=== PATIENT | male | born 1950 | race Caucasian/White ===

== ENCOUNTER 2016-09-18 17:15 | Inpatient (IN) ==
--- NOTE | 2016-09-18 17:38 | Emergency Department Note ---
Disposition Clinical Impression: Acute renal insufficiency, Hyperglycemia UTI (urinary tract infection) Qualifiers: Urinary tract infection type: site unspecified Hematuria presence: without hematuria Qualified Code(s): N39.0 - Urinary tract infection, site not specified Disposition: Admitted As Inpatient Condition: Fair Referrals: Lucy Jain CNP [Primary Care Provider] - Forms: ED Satisfaction Letter Time of Disposition: 20:05 Fall HPI - General Chief Complaint: ED Fall Stated Complaint: fall Time Seen by Provider: 09/18/16 17:24 Source: patient, family Limitations: other (Dementia) Nursing Notes Reviewed: Yes Vital Signs Reviewed: Yes - History of Present Illness HPI Narrative: 66-year-old male with history of recurrent small cell lung cancer presents for multiple falls and weakness. History is very limited due to patient's dementia and spouse being a vague historian. Patient has reportedly had 2 falls in the last 48 hours. One of which he struck his head and did not apparently lose consciousness. The other he fell onto his left side suffering an abrasion to his left elbow. He has had significant weakness over the last week or so and is unable to get around the house for the last few days. He has had an okay appetite and normal bowel movements and no change in urination. He does have a history of mild urinary retention which is unchanged from baseline. He is not currently receiving cancer therapy. His doctors trying to get him into immunotherapy. He has previously received radiation and chemotherapy for the lung cancer as well as prophylactic radiation of the brain. - Related Data Home Medications Medication Instructions Recorded Confirmed Albuterol Neb [AccuNeb] 0.63 mg IH Q6H 09/27/15 09/10/16 Albuterol Sulfate [Albuterol 2 puff IH Q4HR 09/27/15 09/10/16 Inhaler] Amlodipine Besylate 10 mg PO DAILY 09/27/15 09/10/16 Budesonide/Formoterol 160/4.5 2 puff IH BIDR 09/27/15 09/10/16 [Symbicort 160/4.5] Clopidogrel [Plavix] 75 mg PO DAILY 09/27/15 09/10/16 Metoprolol [Lopressor] 50 mg PO BID 09/27/15 09/10/16 Omeprazole [PriLOSEC] 20 mg PO DAILY 09/27/15 09/10/16 Simvastatin [Zocor] 10 mg PO QPM 09/27/15 09/10/16 Levothyroxine [Synthroid] 125 mcg PO 0630 01/31/16 09/10/16 Insulin ASPART [Novolog] 8 unit SQ BIDWM 02/05/16 09/10/16 Insulin NPH Hum/Reg Insulin Hm 16 unit SQ DAILY 02/05/16 09/10/16 [Novolin 70-30 100 Unit/ml Vial] Gabapentin [Neurontin] 300 mg PO HS 02/17/16 09/10/16 Previous Rx's Medication Instructions Recorded Chair, Shower [SHOWER CHAIR] 1 each .ROUTE AD #1 each 10/21/15 Commode - Three In One [THREE IN 1 each .ROUTE PRN #1 each 10/21/15 ONE COMMODE] Handicap Placard 1 each .ROUTE AD #1 each 10/21/15 Walker - Rollator [ROLLATOR] 1 each .ROUTE AD #1 each 10/21/15 Ondansetron [Zofran] 1 tab PO Q8HR PRN #90 tablet 03/04/16 Prochlorperazine Maleate 1 tab PO Q6HR PRN #90 tablet 03/04/16 [Compazine] Citalopram Hydrobromide [Celexa] 20 mg PO DAILY #90 tablet 04/28/16 Amitriptyline [Elavil] 25 mg PO HS #90 tablet 08/25/16 Docusate [Colace] 1 cap PO BID #60 capsule 08/25/16 HYDROcodone/Acet 7.5/325 mg [[place] 1 tab PO Q6H PRN #90 tablet 08/25/16 7.5-325 mg] Tamsulosin [Flomax] 0.4 mg PO DAILY #90 cap.er.24h 08/25/16 Loperamide [Imodium] 2 mg PO AD PRN #90 capsule 09/10/16 Oxycodone HCl [Oxaydo] 5 mg PO Q2H PRN #90 tablet.orl 09/10/16 Allergies Allergy/AdvReac Type Severity Reaction Status Date / Time No Known Allergies Allergy Verified 09/18/16 17:22 All systems ED: reviewed and negative except as stated. Fall PMH - Past Medical History Medical history: Reports: cancer, COPD, diabetes, hyperlipidemia, hypertension, thyroid disease, TIA Surgical history: Reports: other Psychiatric history: Reports: no psych history - Social History Smoking Status: Current every day smoker Alcohol use: Reports: occasionally Drug use: Reports: none Physical Exam - Head Head exam: atraumatic, normocephalic, abrasion to the vertex of the head. - Eye Eye exam: Present: normal appearance, PERRL, EOMI - ENT ENT exam: normal exam, normal oropharynx, mucous membranes moist - Neck Neck exam: Present: normal inspection, full ROM, trachea midline. Nontender with full painless range of motion. - Chest Chest inspection: Present: normal inspection, symmetric chest wall rise - Respiratory Respiratory exam: Clear to auscultation bilaterally without wheezes rales or rhonchi Cardiovascular Cardiovascular exam: Present: regular rate, normal rhythm, normal heart sounds - Abdominal Exam Abdominal exam: Present: soft, Non-Tender. Absent: tenderness, distention, guarding, rebound, rigidity - Extremities Exam Extremities exam: Present: Abrasion to the left elbow with normal painless range of motion and without discrete tenderness. No tenderness to the hips or knees bilaterally. Normal pulses in all extremities. - Back Exam Back exam: Present: normal inspection, full ROM. Absent: tenderness, CVA tenderness (R), CVA tenderness (L) - Neurological Exam Neurological exam: Present: alert, oriented [address], CN II-XII intact. Motor 5 out of 5 in all extremities. No gross sensory deficits. No drift. - Psychiatric Psychiatric exam: Present: normal affect, normal mood - Skin Skin exam: Present: warm, dry, intact, normal color - General Limitations: no limitations General appearance: alert Course - Reevaluation(s) Reevaluation #1: Imaging is negative. Labs are stable. Awaiting urinalysis. Patient is too weak to go home and has had multiple falls. He will need to be admitted for further evaluation and possible detention. Time: 19:23 Reevaluation #2: Labs showed significant hyperglycemia which the patient's states is chronic. She states that his blood sugar always runs very high and his glucometer has been reading "high" for the last week. Urinalysis showed a urinary tract infection. Patient was started on Rocephin and admitted to Dr. Franco for further management. He also received 1 L of normal saline as well as 10 units of subcutaneous insulin. Time: 20:04 Vital Signs Temperature 97.5 F L 09/18/16 17:18 Pulse Rate 55 09/18/16 17:18 Respiratory Rate 18 09/18/16 17:18 Blood Pressure 137/54 09/18/16 17:18 O2 Sat by Pulse Oximetry 93 09/18/16 17:18 Temperature 97.5 F L 09/18/16 17:18 Pulse Rate 74 09/18/16 19:45 Respiratory Rate 18 09/18/16 19:45 Blood Pressure 123/58 09/18/16 19:45 O2 Sat by Pulse Oximetry 94 09/18/16 19:45 Oxygen Delivery Oxygen Delivery Room Air Fall - Lab Data Result diagrams: 09/18/16 17:53 09/18/16 17:53 Lab Results 09/18/16 09/18/16 09/18/16 Range/Units 17:53 17:53 19:07 WBC 11.6 H (4.3-11.1) K/mcL RBC 3.03 L (4.19-5.50) M/mcL Hgb 9.3 L (12.9-16.9) g/dL Hct 27.4 L (37.5-50.1) % MCV 90.4 (83.0-100.0) fL MCH 30.7 (28.0-33.3) pg MCHC 33.9 (31.6-35.5) g/dL RDW 13.0 (11.5-14.5) % Plt Count 307 (140-400) K/mcL MPV 9.3 L (9.4-12.4) fL Immature Gran % 1.3 (0-4) % Seg Neutrophils % 81.9 % Lymphocytes % 7.5 % Monocytes % 8.7 % Eosinophils % 0.3 % Basophils % 0.3 % Neutrophils # 9.5 H (1.6-8.9) K/mcL Lymphocytes # 0.9 (0.6-4.6) K/mcL Monocytes # 1.0 (0.0-1.3) K/mcL Eosinophils # 0.0 (0.0-0.6) K/mcL Basophils # 0.0 (0.0-0.2) K/mcL Sodium 132 L (136-145) mEq/L Potassium 5.1 H (3.5-4.5) mEq/L Chloride 97 L (98-109) mEq/L Carbon Dioxide 21 (19-29) mEq/L BUN 43 H (8-26) mg/dL Creatinine 1.63 H (0.72-1.25) mg/dL Est GFR ( Amer) 52 L (> 60) Est GFR (Non-Af Amer) 43 L (> 60) BUN/Creatinine Ratio 26 (6-26) Glucose 462 H (70-99) mg/dL Calculated Osmolality 305 H (280-300) Calcium 10.3 (8.6-10.8) mg/dL Urine Color Yellow (Yellow) Urine Clarity Cloudy A (Clear) Urine pH 6.5 (5.0-8.0) pH Units Ur Specific [place] 1.017 (1.010-1.025) Urine Protein Trace (Neg-Trace) mg/dL Urine Glucose (UA) >=1000 H (Normal) mg/dL Urine Ketones 40 H (Negative) mg/dL Urine Blood Negative (Negative) Urine Nitrite Positive A (Negative) Urine Bilirubin Negative (Negative) Urine Urobilinogen Normal (Normal) mg/dL Ur Leukocyte Esterase Moderate H (Negative) Urine Microscopic RBC 3-5 H (0-3) per hpf Urine Microscopic WBC 15-30 H (0-3) per hpf Ur Squamous Epith Cells Moderate H (None-Few) per lpf Urine Bacteria Few (None-Few) per hpf Hyaline Casts None Seen (None-Few) per lpf Ur Culture Indicated? YES A (NO) - EKG Data EKG attestation: Yes I reviewed and interpreted this EKG. EKG results narrative: Normal sinus rhythm at 70 with normal axis and intervals. No ST elevation or depression. No T-wave inversions. No pathologic Q waves. No significant change when compared with 11/20/2015.
[2016-09-18 18:01] LABS: Basophils % 0.3 %; Eosinophils % 0.3 %; Hematocrit 27.4 % (37.5-50.1); Hemoglobin 9.3 g/dL (12.9-16.9); Immature Granulocytes % 1.3 % (0-4); Lymphocytes # 0.9 K/mcL (0.6-4.6); Lymphocytes % 7.5 %; Mean Corpuscular HGB Conc 33.9 g/dL (31.6-35.5); Mean Corpuscular Hemoglobin 30.7 pg (28.0-33.3); Mean Corpuscular Volume 90.4 fL (83.0-100.0); Mean Platelet Volume 9.3 fL (9.4-12.4); Monocytes % 8.7 %; Neutrophils # 9.5 K/mcL (1.6-8.9); Platelet Count 307 K/mcL (140-400); Red Blood Count 3.03 M/mcL (4.19-5.50); Segmented Neutrophils % 81.9 %
[2016-09-18 18:14] LABS: Calcium 10.3 mg/dL (8.6-10.8); Potassium 5.1 mEq/L (3.5-4.5)
[2016-09-18 19:22] LABS: Bilirubin,Urine Negative (Negative); Blood,Urine Negative (Negative); Clarity,Urine Cloudy (Clear); Color,Urine Yellow (Yellow); Glucose,Urine (UA) >=1000 mg/dL (Normal); Ketones,Urine 40 mg/dL (Negative); Leukocyte Esterase,Urine Moderate (Negative); Nitrite,Urine Positive (Negative); PH,Urine 6.5 pH Units (5.0-8.0); Protein,Urine Trace mg/dL (Neg-Trace); Specific Gravity,Urine 1.017 (1.010-1.025); Urobilinogen,Urine Normal (Normal)
--- NOTE | 2016-09-18 19:22 | Emergency Department Note ---
Disposition Clinical Impression: UTI (urinary tract infection), Acute renal insufficiency, Hyperglycemia Disposition: Admitted As Inpatient Condition: Fair Referrals: Lucy Jain CNP [Primary Care Provider] - Forms: ED Satisfaction Letter General Adult HPI - General Chief complaint: ED Fall Stated complaint: fall Time Seen by Provider: 09/18/16 17:24 Source: patient, family Limitations: no limitations - History of Present Illness Pain Scale: 8 - Related Data Home Medications Medication Instructions Recorded Confirmed Albuterol Neb [AccuNeb] 0.63 mg IH Q6H PRN 09/27/15 09/18/16 Albuterol Sulfate [Albuterol 2 puff IH Q4HR PRN 09/27/15 09/18/16 Inhaler] Amlodipine Besylate 10 mg PO DAILY 09/27/15 09/18/16 Budesonide/Formoterol 160/4.5 2 puff IH BIDR 09/27/15 09/18/16 [Symbicort 160/4.5] Clopidogrel [Plavix] 75 mg PO DAILY 09/27/15 09/18/16 Metoprolol [Lopressor] 50 mg PO BID 09/27/15 09/18/16 Omeprazole [PriLOSEC] 20 mg PO DAILY 09/27/15 09/18/16 Simvastatin [Zocor] 10 mg PO QPM 09/27/15 09/18/16 Levothyroxine [Synthroid] 125 mcg PO 0630 01/31/16 09/18/16 Insulin ASPART [Novolog] 0 unit SQ TIDWM 02/05/16 09/18/16 Gabapentin [Neurontin] 300 mg PO HS 02/17/16 09/18/16 Allopurinol [Zyloprim 100 MG] 100 mg PO DAILY 09/18/16 Docusate [Colace] 100 mg PO BID 09/18/16 09/18/16 Ferrous Sulfate 325 mg PO DAILY 09/18/16 Glucagon,Human Recombinant 1 mg IJ ONCE PRN 09/18/16 09/18/16 [Glucagon Emergency Kit] Insulin NPH, HUMAN [HumuLIN N] 0 unit SQ DAILY 09/18/16 09/18/16 Pramipexole Di-HCl [Pramipexole 0.5 mg PO HS 09/18/16 09/18/16 Dihydrochloride] Sennosides [Senna] 17.2 mg PO HS PRN 09/18/16 Previous Rx's Medication Instructions Recorded Ondansetron [Zofran] 1 tab PO Q8HR PRN #90 tablet 03/04/16 Prochlorperazine Maleate 1 tab PO Q6HR PRN #90 tablet 03/04/16 [Compazine] Amitriptyline [Elavil] 25 mg PO HS #90 tablet 08/25/16 HYDROcodone/Acet 7.5/325 mg [[place] 1 tab PO Q6H PRN #90 tablet 08/25/16 7.5-325 mg] Tamsulosin [Flomax] 0.4 mg PO DAILY #90 cap.er.24h 08/25/16 Loperamide [Imodium] 2 mg PO AD PRN #90 capsule 09/10/16 Oxycodone HCl [Oxaydo] 5 mg PO Q2H PRN #90 tablet.orl 09/10/16 Allergies Allergy/AdvReac Type Severity Reaction Status Date / Time No Known Allergies Allergy Verified 09/18/16 17:22 Past Medical History - Past Medical History Medical history: Reports: cancer, COPD, diabetes, hyperlipidemia, hypertension, thyroid disease, TIA Surgical history: Reports: other Psychiatric history: Reports: no psych history - Social History Smoking Status: Current every day smoker Smokeless Tobacco Status: No Alcohol use: Reports: occasionally Drug use: Reports: none Physical Exam - General Limitations: no limitations General appearance: alert Course - Reevaluation(s) Reevaluation #1: Social patient with the resident, Dr. Meyer. Patient presents after multiple falls at home. He actually found himself unable to get up today as well. At one point he was up with a walker when he fell. His could not get him up. Sounds like he is having significant weakness. He seems to landed on his left hip although clinically there is not a significant amount of tenderness over the hip itself. There is no pain on axial loading of the hip joint. The patient just seems overall weak. It sounds like the situation is not safe at home so he did not need to be admitted. The question is what is the cause of his weakness. Waiting for labs to help us understand that. We will eventually arranged for him to be admitted to the hospital. Time: 19:22 Vital Signs Temperature 97.5 F L 09/18/16 17:18 Pulse Rate 55 09/18/16 17:18 Respiratory Rate 18 09/18/16 17:18 Blood Pressure 137/54 09/18/16 17:18 O2 Sat by Pulse Oximetry 93 09/18/16 17:18 Temperature 97.5 F L 09/18/16 17:18 Pulse Rate 70 09/18/16 20:18 Respiratory Rate 20 09/18/16 20:18 Blood Pressure 118/63 09/18/16 20:18 O2 Sat by Pulse Oximetry 94 09/18/16 20:18 Oxygen Delivery Oxygen Delivery Room Air Medical Decision Making - Lab Data Result diagrams: 09/18/16 17:53 09/18/16 17:53 Lab Results 09/18/16 09/18/16 09/18/16 Range/Units 17:53 17:53 19:07 WBC 11.6 H (4.3-11.1) K/mcL RBC 3.03 L (4.19-5.50) M/mcL Hgb 9.3 L (12.9-16.9) g/dL Hct 27.4 L (37.5-50.1) % MCV 90.4 (83.0-100.0) fL MCH 30.7 (28.0-33.3) pg MCHC 33.9 (31.6-35.5) g/dL RDW 13.0 (11.5-14.5) % Plt Count 307 (140-400) K/mcL MPV 9.3 L (9.4-12.4) fL Immature Gran % 1.3 (0-4) % Seg Neutrophils % 81.9 % Lymphocytes % 7.5 % Monocytes % 8.7 % Eosinophils % 0.3 % Basophils % 0.3 % Neutrophils # 9.5 H (1.6-8.9) K/mcL Lymphocytes # 0.9 (0.6-4.6) K/mcL Monocytes # 1.0 (0.0-1.3) K/mcL Eosinophils # 0.0 (0.0-0.6) K/mcL Basophils # 0.0 (0.0-0.2) K/mcL Sodium 132 L (136-145) mEq/L Potassium 5.1 H (3.5-4.5) mEq/L Chloride 97 L (98-109) mEq/L Carbon Dioxide 21 (19-29) mEq/L BUN 43 H (8-26) mg/dL Creatinine 1.63 H (0.72-1.25) mg/dL Est GFR ( Amer) 52 L (> 60) Est GFR (Non-Af Amer) 43 L (> 60) BUN/Creatinine Ratio 26 (6-26) Glucose 462 H (70-99) mg/dL Calculated Osmolality 305 H (280-300) Calcium 10.3 (8.6-10.8) mg/dL Urine Color Yellow (Yellow) Urine Clarity Cloudy A (Clear) Urine pH 6.5 (5.0-8.0) pH Units Ur Specific [place] 1.017 (1.010-1.025) Urine Protein Trace (Neg-Trace) mg/dL Urine Glucose (UA) >=1000 H (Normal) mg/dL Urine Ketones 40 H (Negative) mg/dL Urine Blood Negative (Negative) Urine Nitrite Positive A (Negative) Urine Bilirubin Negative (Negative) Urine Urobilinogen Normal (Normal) mg/dL Ur Leukocyte Esterase Moderate H (Negative) Urine Microscopic RBC 3-5 H (0-3) per hpf Urine Microscopic WBC 15-30 H (0-3) per hpf Ur Squamous Epith Cells Moderate H (None-Few) per lpf Urine Bacteria Few (None-Few) per hpf Hyaline Casts None Seen (None-Few) per lpf Ur Culture Indicated? YES A (NO) Attestation Statement - Attestation Attestation: I , Dr. Hughes, examined this patient [id number] and my medical decision- making was reviewed with Dr. Meyer, Resident Physician. I agree with the documented findings, disposition and treatment plan as described except to the extent set forth below. Please see my progress notes for details.
[2016-09-18 19:24] LABS: Bacteria,Urine Few per hpf (None-Few); Hyaline Casts,Urine None Seen per lpf (None-Few); Squamous Epithelial Cell,Urine Moderate per lpf (None-Few); WBC,Urine 15-30 per hpf (0-3)
[2016-09-18] MEDS ORDERED: 0.9 % Sodium Chloride 1,000 ML IVC ONE (19:45)
[2016-09-18] MEDS ORDERED: Insulin Regular, Human 100 UNIT/ML SQ ONE (19:45)
[2016-09-18] MEDS ORDERED: Ondansetron 4 MG/2 ML VIAL IVP PRN (20:27)
[2016-09-18] MEDS ORDERED: Naloxone 0.4 MG/ML INJ IVP PRN (20:27)
[2016-09-18] MEDS ORDERED: *HR* Dextrose 50 % in Water (Syg) 50 ML SYRINGE IVP PRN (20:27)
[2016-09-18] MEDS ORDERED: *HR* Morphine 2 MG/ML SYRINGE IVP PRN (20:27)
[2016-09-18] MEDS ORDERED: Dextrose Gel 15 GM PO PRN ×2 (20:27)
[2016-09-18] MEDS ORDERED: Acetaminophen 325 MG TABLET PO PRN (20:27)
[2016-09-18] MEDS ORDERED: D5% in Water 1,000 ML IVC PRN (20:27)
--- NOTE | 2016-09-18 20:36 | Internal Med History&Physical ---
Date of Encounter: 09/18/16 Time of Encounter: 20:34 Assessment and Plan (1) UTI (urinary tract infection) Current visit: Yes Status: Acute acute metabolic encephalopathy radhaon [place], follow cultures Continue IV fluids Full precautions Omeprazole for GI prophylaxis and subcutaneous heparin for DVT prophylaxis. Patient will be admitted as inpatient, expected to stay more than 2 midnights. Wishes to be a full code. Time spent on this admission 40 minutes. High risk of falling Qualifiers: Urinary tract infection type: site unspecified Hematuria presence: without hematuria Qualified Code(s): N39.0 - Urinary tract infection, site not specified (2) Acute metabolic encephalopathy Current visit: Yes Status: Acute (3) Acute renal insufficiency Current visit: Yes Status: Acute Acute renal failure secondary to infection/dehydration versus possible obstruction Order straight catheter every shift, consider [place] catheter Continue the fluids and monitor creatinine, consider nephrology consult if not improving (4) HTN (hypertension) Current visit: No Status: Chronic Qualifiers: Hypertension type: essential hypertension Qualified Code(s): I10 - Essential (primary) hypertension (5) Hyponatremia Current visit: No Status: Chronic History of SIADH Monitor sodium and consider fluid restriction if force (6) Hypothyroidism Current visit: No Status: Chronic Continue levothyroxine Qualifiers: Hypothyroidism type: unspecified Qualified Code(s): E03.9 - Hypothyroidism , unspecified (7) SIADH (syndrome of inappropriate ADH production) Current visit: No Status: Chronic (8) Small cell lung cancer Current visit: No Status: Chronic Qualifiers: Laterality: unspecified laterality Qualified Code(s): C34.90 - Malignant neoplasm of unspecified part of unspecified bronchus or lung (9) Diabetes Current visit: Yes Status: Acute Continue insulin sliding scale Qualifiers: Diabetes mellitus type: type 2 Diabetes mellitus complication status: without complication Diabetes mellitus intermodal customer service insulin use: with intermodal customer service use Qualified Code(s): E11.9 - Type 2 diabetes mellitus without complications ; Z79.4 - terminal gauger (current) use of insulin Internal Medicine - H&P: HPI Chief complaint: Weakness Admitted From: Emergency Dept History of present illness: Mr. Swanson is a 66 year old male with a past medical history of lung cancer/ small cell carcinoma stage IV status post chemotherapy and radiation, at least 2 insulin-dependent, hypertension, dementia, who was brought by his as he has been falling lately. The patient has fallen twice in the past 48 hours, she hit his head but did not lose consciousness. The CT scan of the head did not show any intracranial hemorrhage or fracture. Patient has been feeling weaker and more confused for the past 2 days. His UA shows positive nitrates 30 white blood cells in few bacteria. White blood cell count is 11.6 hemoglobin 9.6) 2 his baseline, sodium 132, he has history of SIADH, potassium is 5.1 and his creatinine has increased from 1.01 up to 1.63. His glucose has been very elevated and he has not been able to move around. His glucose today was 462. Also, he supposed to self catheterize at home for the past 2 days she has been so weak he has not been able to do it. 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, SIADH, GERD, tobacco use, DKA in the past, depression, BPH, neuropathy), COPD (Not oxygen dependent), diabetes (Insulin-dependent), hyperlipidemia, hypertension, thyroid disease (Hypothyroidism), TIA, other (CAD status post stents) Psychiatric history: no psych history - Past Surgical History Surgical History: other (Chest port on the right chest, tonsillectomy, adenoidectomy, left foot cyst surgery, cardiac catheterization) - Social History Smoking Status: Current every day smoker Packs per day: One pack per day Smokeless Tobacco Status: No Alcohol use: occasionally Drug use: none - Additional Family History Additional family history: Brother with CABG, father with lung cancer/ mesothelioma, sister with hypertension Internal Medicine - H&P: Meds Albuterol Neb [AccuNeb] 0.63 mg IH Q6H PRN 09/27/15 [History] Albuterol Sulfate [Albuterol Inhaler] 2 puff IH Q4HR PRN 09/27/15 [History] Amlodipine Besylate 10 mg PO DAILY 09/27/15 [History] Budesonide/Formoterol 160/4.5 [Symbicort 160/4.5] 2 puff IH BIDR 09/27/15 [ History] Clopidogrel [Plavix] 75 mg PO DAILY 09/27/15 [History] Metoprolol [Lopressor] 50 mg PO BID 09/27/15 [History] Omeprazole [PriLOSEC] 20 mg PO DAILY 09/27/15 [History] Simvastatin [Zocor] 10 mg PO QPM 09/27/15 [History] Levothyroxine [Synthroid] 125 mcg PO 0630 01/31/16 [History] Insulin ASPART [Novolog] 0 unit SQ TIDWM 02/05/16 [History] Gabapentin [Neurontin] 300 mg PO HS 02/17/16 [History] Ondansetron [Zofran] 1 tab PO Q8HR PRN #90 tablet 03/04/16 [Rx] Prochlorperazine Maleate [Compazine] 1 tab PO Q6HR PRN #90 tablet 03/04/16 [Rx] Amitriptyline [Elavil] 25 mg PO HS #90 tablet 08/25/16 [Rx] HYDROcodone/Acet 7.5/325 mg [[place] 7.5-325 mg] 1 tab PO Q6H PRN #90 tablet 08/25 [Rx] Tamsulosin [Flomax] 0.4 mg PO DAILY #90 cap.er.24h 08/25/16 [Rx] Loperamide [Imodium] 2 mg PO AD PRN #90 capsule 09/10/16 [Rx] Oxycodone HCl [Oxaydo] 5 mg PO Q2H PRN #90 tablet.orl 09/10/16 [Rx] Allopurinol [Zyloprim 100 MG] 100 mg PO DAILY 09/18/16 [History] Docusate [Colace] 100 mg PO BID 09/18/16 [History] Ferrous Sulfate 325 mg PO DAILY 09/18/16 [History] Glucagon,Human Recombinant [Glucagon Emergency Kit] 1 mg IJ ONCE PRN 09/18/16 [ History] Insulin NPH, HUMAN [HumuLIN N] 0 unit SQ DAILY 09/18/16 [History] Pramipexole Di-HCl [Pramipexole Dihydrochloride] 0.5 mg PO HS 09/18/16 [History] Sennosides [Senna] 17.2 mg PO HS PRN 09/18/16 [History] Allergies No Known Allergies Allergy (Verified 09/18/16 17:22) All Systems PM: A 10-system review of systems was performed and is negative for pertinent findings except as documented above in the HPI. Review of systems: She is very weak, denies any chest pain, shortness of breath. Other systems out of the 10 reviewed werw negative Chest x-ray shows decrease in the size of the left mid lung mass and no acute pulmonary disease - Constitutional Vitals: Temp Pulse Resp BP Pulse Ox 97.5 F L 70 20 118/63 94 09/18/16 17:18 09/18/16 20:18 09/18/16 20:18 09/18/16 20:18 09/18/16 20:18 General appearance: Present: A&O X 3 (Confused at times, very poor historian), loss of weight - Head Head exam: Present: atraumatic, normocephalic - Eye Eye exam: Present: PERRL, conjuntiva pink, sclera anicteric Pupils: Present: PERRL - Neck Neck exam general surgery: Present: supple, trachea midline. Absent: lymphadenopathy - Respiratory Respiratory exam: Present: decreased breath sounds (Diminished breath sounds bilaterally, right upper chest port in place, no infection), CTAB. Absent: accessory muscle use, rales, rhonchi, wheezes - Cardiovascular Cardiovascular exam: Present: RRR, +S1, +S2. Absent: diastolic murmur, gallop, rubs, systolic murmur - GI/Abdominal GI/Abdominal exam: Present: normal bowel sounds, soft, no peritoneal signs. Absent: distended, tenderness - Extremities Exam Extremities exam: Present: warm, radial pulses palpable and symetrical. Absent : calf tenderness, cyanotic, pedal edema - Neurological Exam Neurological exam: Present: CN II-XII intact, oriented X3, no focal deficits. Absent: pronater drift, facial droop, speech deficit - Skin Skin exam: Present: dry, intact Internal Med - H&P Results - Labs CBC & Chem 7: 09/18/16 17:53 09/18/16 17:53 Labs: Short CBC 09/18/16 Range/Units 17:53 WBC 11.6 H (4.3-11.1) K/mcL Hgb 9.3 L (12.9-16.9) g/dL Hct 27.4 L (37.5-50.1) % Plt Count 307 (140-400) K/mcL Neutrophils # 9.5 H (1.6-8.9) K/mcL BMP 09/18/16 17:53 Sodium 132 L Potassium 5.1 H Chloride 97 L Carbon Dioxide 21 BUN 43 H Creatinine 1.63 H Glucose 462 H Calcium 10.3 Urine 09/18/16 Range/Units 19:07 Urine Color Yellow (Yellow) Urine Clarity Cloudy A (Clear) Urine pH 6.5 (5.0-8.0) pH Units Ur Specific [place] 1.017 (1.010-1.025) Urine Protein Trace (Neg-Trace) mg/dL Urine Glucose (UA) >=1000 H (Normal) mg/dL - Impressions ITS Impressions Head CT 09/18/16 17:32 IMPRESSION: No acute intracranial hemorrhage or mass effect. D/ / Jayce Morales MD / Jayce Morales MD Interpreting Provider: Jayce Morales MD Chest X-Ray 09/18/16 17:44 IMPRESSION: 1. No acute cardiopulmonary abnormality. 2. Decreased conspicuity of the patient's known left mid lung mass. D/ / Devaughn Mondragon MD / Devaughn Mondragon MD Interpreting Provider: Devaughn Mondragon MD Hip X-Ray 09/18/16 18:18 IMPRESSION: No acute fracture or subluxation. D/ / Savage Payne MD / Savage Payne MD Interpreting Provider: Savage Payne MD
[2016-09-18] MEDS ORDERED: Insulin LISPRO 300 UNITS/3 ML VIAL SQ SCH ×2 (21:00→22:45)
[2016-09-18] MEDS: Insulin LISPRO 300 UNITS/3 ML VIAL SQ SCH (22:39)
[2016-09-18] MEDS: 0.9 % Sodium Chloride 1,000 ML IVC SCH (23:42)
[2016-09-18] MEDS: *HR* Heparin 5,000 UNIT/ML VIAL SQ SCH (23:42)
[2016-09-18] MEDS: Nicotine 21 MG PATCH.TD24 TD SCH (23:42)
[2016-09-18] MEDS: Gabapentin 300 MG CAPSULE PO SCH (23:43)
[2016-09-18] MEDS: PRAMIPEXOLE DI HCL PO SCH (23:43)
[2016-09-18] MEDS: Insulin DETEMIR 100 UNIT/ML X5UNITS SQ SCH (23:43)
[2016-09-19 04:30] LABS: Hemoglobin 8.3 g/dL (12.9-16.9); Mean Corpuscular HGB Conc 34.6 g/dL (31.6-35.5); Mean Corpuscular Hemoglobin 31.2 pg (28.0-33.3); Mean Corpuscular Volume 90.2 fL (83.0-100.0); Mean Platelet Volume 9.7 fL (9.4-12.4); Platelet Count 278 K/mcL (140-400); Red Blood Count 2.66 M/mcL (4.19-5.50); Red Cell Distribution Width 12.9 % (11.5-14.5)
[2016-09-19 04:49] LABS: BUN/Creatinine Ratio 28 (6-26); Calcium 9.6 mg/dL (8.6-10.8); Carbon Dioxide 24 mEq/L (19-29); Chloride 103 mEq/L (98-109); Glucose 87 mg/dL (70-99); Osmolality,Calculated 290 (280-300); Sodium 137 mEq/L (136-145); eGFR For African Americans > 60 (> 60); eGFR For Non-African Americans > 60 (> 60)
[2016-09-19 04:51] LABS: Blood Urea Nitrogen 32 mg/dL (8-26); Potassium 3.6 mEq/L (3.5-4.5)
[2016-09-19] MEDS: Insulin LISPRO 300 UNITS/3 ML VIAL SQ SCH ×3 (08:00→16:46)
[2016-09-19] MEDS: amLODIPine 5 MG TABLET PO SCH (08:04)
[2016-09-19] MEDS: Nicotine 21 MG PATCH.TD24 TD SCH (08:05)
[2016-09-19] MEDS: *HR* Heparin 5,000 UNIT/ML VIAL SQ SCH ×2 (08:05→17:05)
[2016-09-19] MEDS ORDERED: Insulin LISPRO 300 UNITS/3 ML VIAL SQ SCH (08:35)
[2016-09-19] MEDS ORDERED: Famotidine 20 MG TABLET PO SCH (09:00)
--- NOTE | 2016-09-19 12:14 | Internal Med Progress Note ---
Date of Encounter: 09/19/16 Time of Encounter: 09:30 - Assessment and plan (1) UTI (urinary tract infection) Current Visit: Yes Status: Acute Assessment and plan: Culture pending. Continue ceftriaxone. Patient does not appear to have had a recent urinary tract infection at least not here at [facility]. Continue self cath as needed- bladder scan and possible caraballo placement if patient still too weak to cath himself as he was at home. Acute kidney injury resolved. Qualifiers: Urinary tract infection type: site unspecified Hematuria presence: without hematuria Qualified Code(s): N39.0 - Urinary tract infection, site not specified (2) Acute metabolic encephalopathy Current Visit: Yes Status: Acute (3) Acute renal insufficiency Current Visit: Yes Status: Resolved (4) Diabetes Current Visit: Yes Status: Chronic Assessment and plan: Appears relatively well controlled at home however A1c was from 7 months ago and was 6.4%, will obtain repeat morning labs. Continue sliding scale while admitted. Of note, patient was markedly hyperglycemic over 500 upon admission and he became hypoglycemic overnight. His sliding scale before meals and his nighttime doses of insulin has been decreased, we will monitor closely. Current glucose 114. Qualifiers: Diabetes mellitus type: type 2 Diabetes mellitus complication status: without complication Diabetes mellitus buttermaker insulin use: with buttermaker use Qualified Code(s): E11.9 - Type 2 diabetes mellitus without complications ; Z79.4 - bed bug exterminator (current) use of insulin (5) COPD (chronic obstructive pulmonary disease) Current Visit: No Status: Chronic Assessment and plan: Patient denies shortness of breath above his norm at this time, we will continue to trend (6) HTN (hypertension) Current Visit: No Status: Chronic Assessment and plan: Controlled. At home, patient is on amlodipine 10 mg daily, metoprolol 50 mg twice a day and both of these have been continued, will continue to trend Qualifiers: Hypertension type: essential hypertension Qualified Code(s): I10 - Essential (primary) hypertension (7) Hyponatremia Current Visit: No Status: Resolved (8) Hypothyroidism Current Visit: No Status: Chronic Assessment and plan: TSH checked last month was low, T4 normal, follow-up outpatient Qualifiers: Hypothyroidism type: unspecified Qualified Code(s): E03.9 - Hypothyroidism , unspecified (9) SIADH (syndrome of inappropriate ADH production) Current Visit: No Status: Chronic (10) Small cell lung cancer Current Visit: No Status: Chronic Qualifiers: Laterality: unspecified laterality Qualified Code(s): C34.90 - Malignant neoplasm of unspecified part of unspecified bronchus or lung (11) Falls Current Visit: Yes Status: Acute Assessment and plan: We will bring OT and PT on board. - Subjective Interval history: Patient seen and examined. On examination, patient sitting upright in bed asleep. He awakens he to light touch states he would like to sleep then quickly falls back to sleep. His abdomen is soft but diffusely tender. He denies concerns at this time. - Constitutional Vitals: Temp Pulse Resp BP Pulse Ox 98.1 F 71 20 147/62 96 09/19/16 10:54 09/19/16 10:54 09/19/16 10:54 09/19/16 10:54 09/19/16 10:54 General appearance: Present: cachectic, A&O X 3 (Confused at times, very poor historian), no acute distress, loss of weight - Head Head exam: Present: atraumatic, normocephalic - Eye Eye exam: Present: PERRL, conjuntiva pink, sclera anicteric Pupils: Present: PERRL - Neck Neck exam general surgery: Present: trachea midline. Absent: lymphadenopathy - Respiratory Respiratory exam: Present: decreased breath sounds. Absent: accessory muscle use, rales, respiratory distress, rhonchi, wheezes - Cardiovascular Cardiovascular exam: Present: RRR, +S1, +S2. Absent: diastolic murmur, gallop, rubs, systolic murmur - GI/Abdominal GI/Abdominal exam: Present: normal bowel sounds, soft, tenderness, no peritoneal signs. Absent: distended - Extremities Exam Extremities exam: Present: warm, radial pulses palpable and symetrical. Absent : calf tenderness, cyanotic, pedal edema - Neurological Exam Neurological exam: Present: alert, altered (groggy/sleepy), CN II-XII intact, oriented X3, no focal deficits. Absent: pronater drift, facial droop, speech deficit - Skin Skin exam: Present: dry, intact, pallor, warm Internal Medicine: Result - Labs CBC & Chem 7: 09/19/16 03:30 09/19/16 03:30 Labs: Short CBC 09/19/16 Range/Units 03:30 WBC 11.8 H (4.3-11.1) K/mcL Hgb 8.3 L (12.9-16.9) g/dL Hct 24.0 L (37.5-50.1) % Plt Count 278 (140-400) K/mcL [facility] 09/19/16 03:30 Sodium 137 Potassium 3.6 D Chloride 103 Carbon Dioxide 24 BUN 32 H D Creatinine 1.15 Glucose 87 Calcium 9.6 Consult Discharge Plan - Plan Referrals: Lucy Jain, [employer] [Primary Care Provider] -
[2016-09-19] MEDS: 0.9 % Sodium Chloride 1,000 ML IVC SCH (13:14)
[2016-09-19] MEDS ORDERED: Sennosides 8.6 MG TABLET PO PRN (16:57)
[2016-09-19] MEDS ORDERED: Ondansetron 4 MG/2 ML VIAL IVP PRN (17:02)
[2016-09-19] MEDS: *HR* HYDROcodone/Acet 7.5/325 mg TABLET PO PRN (17:13)
[2016-09-19] MEDS: *HR* OxyCODONE Immed Rel 5 MG TABLET PO PRN (18:43)
[2016-09-19] MEDS: Budesonide/Formoterol 160/4.5 MDI IH SCH (19:52)
[2016-09-19] MEDS: Gabapentin 300 MG CAPSULE PO SCH (19:58)
[2016-09-19] MEDS: Insulin DETEMIR 100 UNIT/ML X5UNITS SQ SCH (20:14)
[2016-09-19] MEDS: PRAMIPEXOLE DI HCL PO SCH (20:20)
[2016-09-20] MEDS: *HR* Heparin 5,000 UNIT/ML VIAL SQ SCH ×4 (00:54→23:26)
[2016-09-20] MEDS: 0.9 % Sodium Chloride 1,000 ML IVC SCH (03:03)
[2016-09-20 04:49] LABS: Basophils % 0.3 %; Eosinophils # 0.3 K/mcL (0.0-0.6); Eosinophils % 3.7 %; Hematocrit 22.9 % (37.5-50.1); Immature Granulocytes % 1.2 % (0-4); Lymphocytes # 1.5 K/mcL (0.6-4.6); Lymphocytes % 17.5 %; Mean Corpuscular HGB Conc 34.9 g/dL (31.6-35.5); Mean Corpuscular Hemoglobin 31.7 pg (28.0-33.3); Mean Corpuscular Volume 90.9 fL (83.0-100.0); Mean Platelet Volume 9.7 fL (9.4-12.4); Monocytes % 11.5 %; Neutrophils # 5.7 K/mcL (1.6-8.9); Platelet Count 270 K/mcL (140-400); Red Blood Count 2.52 M/mcL (4.19-5.50); Red Cell Distribution Width 12.9 % (11.5-14.5); Segmented Neutrophils % 65.8 %
[2016-09-20] MEDS: Nicotine 21 MG PATCH.TD24 TD SCH (07:51)
[2016-09-20] MEDS: amLODIPine 5 MG TABLET PO SCH (07:51)
[2016-09-20] MEDS: Insulin LISPRO 300 UNITS/3 ML VIAL SQ SCH ×3 (07:52→17:05)
[2016-09-20] MEDS: Budesonide/Formoterol 160/4.5 MDI IH SCH ×2 (08:14→20:24)
--- NOTE | 2016-09-20 10:22 | Internal Med Progress Note ---
Date of Encounter: 09/20/16 Time of Encounter: 09:30 - Assessment and plan (1) Falls Current Visit: Yes Status: Acute Assessment and plan: Awaiting OT and PT recommendations. We will observe overnight, discussed with the patient is options after he is seen by OT and PT. He states that he will likely refused to go to correction and he states he will likely refuse home health services stating that he and his do not care for people coming into their house. He is also refusing to use a walker or a cane. (2) UTI (urinary tract infection) Current Visit: Yes Status: Ruled-out Assessment and plan: Ruled out, urine culture negative. Mild leukocytosis resolved, no indication for antibiotics. Patient is unable to catheter himself at this time, we will leave [place] in place. Acute kidney injury resolved. Qualifiers: Urinary tract infection type: site unspecified Hematuria presence: without hematuria Qualified Code(s): N39.0 - Urinary tract infection, site not specified (3) Acute metabolic encephalopathy Current Visit: Yes Status: Resolved Assessment and plan: Patient alert and oriented 3. He denies pain or shortness of breath above his norm. Awaiting OT and PT consultations for tomorrow. Patient stated he would refuse to go to inpatient rehabilitation unit also refused home health services , will speak further with the patient once recommendations are rendered. (4) Acute renal insufficiency Current Visit: Yes Status: Resolved (5) Diabetes Current Visit: Yes Status: Chronic Assessment and plan: Appears relatively well controlled at home however A1c was from 7 months ago and was 6.4%, will obtain repeat morning labs. Continue sliding scale while admitted. Of note, patient was markedly hyperglycemic over 500 upon admission and he became hypoglycemic overnight. His sliding scale before meals and his nighttime doses of insulin has been decreased yesterday and his glucoses have remained stable however they decrease overnight, we will decrease his basal and nighttime dosages. Qualifiers: Diabetes mellitus type: type 2 Diabetes mellitus complication status: without complication Diabetes mellitus ferry terminal agent insulin use: with fci use Qualified Code(s): E11.9 - Type 2 diabetes mellitus without complications ; Z79.4 - rodent exterminator (current) use of insulin (6) COPD (chronic obstructive pulmonary disease) Current Visit: No Status: Chronic Assessment and plan: Patient denies shortness of breath above his norm at this time, we will continue to trend (7) HTN (hypertension) Current Visit: No Status: Chronic Assessment and plan: Controlled. At home, patient is on amlodipine 10 mg daily, metoprolol 50 mg twice a day and both of these have been continued, will continue to trend Qualifiers: Hypertension type: essential hypertension Qualified Code(s): I10 - Essential (primary) hypertension (8) Hyponatremia Current Visit: No Status: Resolved (9) Hypothyroidism Current Visit: No Status: Chronic Assessment and plan: TSH checked last month was low, T4 normal, follow-up outpatient Qualifiers: Hypothyroidism type: unspecified Qualified Code(s): E03.9 - Hypothyroidism , unspecified (10) SIADH (syndrome of inappropriate ADH production) Current Visit: No Status: Chronic (11) Small cell lung cancer Current Visit: No Status: Chronic Qualifiers: Laterality: unspecified laterality Qualified Code(s): C34.90 - Malignant neoplasm of unspecified part of unspecified bronchus or lung - Subjective Interval history: Patient seen and examined. On examination, patient sitting upright in bed watching television. Patient currently denies pain and states he is eating well. He denies any nausea or vomiting. - Constitutional Vitals: Temp Pulse Resp BP Pulse Ox 98.3 F 75 16 146/70 95 09/20/16 06:55 09/20/16 06:55 09/20/16 08:14 09/20/16 06:55 09/20/16 08:14 General appearance: Present: cachectic, A&O X 3, pleasant, no acute distress, loss of weight, answers questions appropriately - Head Head exam: Present: atraumatic, normocephalic - Eye Eye exam: Present: PERRL, conjuntiva pink, sclera anicteric Pupils: Present: PERRL - Neck Neck exam general surgery: Present: supple, trachea midline. Absent: lymphadenopathy - Respiratory Respiratory exam: Present: decreased breath sounds. Absent: accessory muscle use, rales, respiratory distress, rhonchi, wheezes - Cardiovascular Cardiovascular exam: Present: RRR, +S1, +S2. Absent: diastolic murmur, gallop, rubs, systolic murmur - GI/Abdominal GI/Abdominal exam: Present: normal bowel sounds, soft, no peritoneal signs. Absent: distended, tenderness - Extremities Exam Extremities exam: Present: warm, radial pulses palpable and symetrical. Absent : calf tenderness, cyanotic, pedal edema - Neurological Exam Neurological exam: Present: alert, CN II-XII intact, oriented X3, no focal deficits, strengths equal and symetr throughout. Absent: pronater drift, facial droop, speech deficit - Skin Skin exam: Present: dry, intact, pallor, warm Internal Medicine: Result - Labs CBC & Chem 7: 09/20/16 03:36 09/19/16 03:30 Labs: Short CBC 09/20/16 Range/Units 03:36 WBC 8.7 (4.3-11.1) K/mcL Hgb 8.0 L (12.9-16.9) g/dL Hct 22.9 L (37.5-50.1) % Plt Count 270 (140-400) K/mcL Neutrophils # 5.7 (1.6-8.9) K/mcL Consult Discharge Plan - Plan Referrals: Lucy Jain, [employer] CONTAINER INSPECTOR [Primary Care Provider] -
[2016-09-20] MEDS ORDERED: Insulin LISPRO 300 UNITS/3 ML VIAL SQ SCH (10:26)
[2016-09-20] MEDS: *HR* OxyCODONE Immed Rel 5 MG TABLET PO PRN ×2 (17:03→20:46)
--- NOTE | 2016-09-20 20:05 | Electrocardiograph Report ---
[place] [id number] Test Date: 2016-09-18 Pat Name: Nic Swanson Department: 105 Room: 3B22 Gender: Buccaro: [facility] : 1950 Requested By: Candi Estrada Order Number: [id number] Reading MD: Sky Saravia MD Measurements Intervals [place] Rate: 70 P: 78 GA: 156 QRS: 71 QRSD: 93 T: 77 QT: 386 QTc: 407 Interpretive Statements SINUS RHYTHM Electronically Signed On 09-20-2016 20:03:35 EDT by Sky Saravia MD
[2016-09-20] MEDS: Gabapentin 300 MG CAPSULE PO SCH (20:46)
[2016-09-20] MEDS: PRAMIPEXOLE DI HCL PO SCH (20:49)
[2016-09-20] MEDS ORDERED: Insulin DETEMIR 100 UNIT/ML X5UNITS SQ SCH (21:00)
[2016-09-21 04:09] LABS: Basophils % 0.4 %; Eosinophils # 0.4 K/mcL (0.0-0.6); Hematocrit 24.5 % (37.5-50.1); Hemoglobin 8.4 g/dL (12.9-16.9); Immature Granulocytes % 1.5 % (0-4); Lymphocytes # 1.6 K/mcL (0.6-4.6); Lymphocytes % 21.3 %; Mean Corpuscular HGB Conc 34.3 g/dL (31.6-35.5); Mean Corpuscular Hemoglobin 31.1 pg (28.0-33.3); Mean Corpuscular Volume 90.7 fL (83.0-100.0); Mean Platelet Volume 9.8 fL (9.4-12.4); Monocytes # 0.8 K/mcL (0.0-1.3); Monocytes % 11.3 %; Neutrophils # 4.5 K/mcL (1.6-8.9); Platelet Count 303 K/mcL (140-400); Red Cell Distribution Width 13.1 % (11.5-14.5); Segmented Neutrophils % 60.5 %
[2016-09-21 04:16] LABS: Hemoglobin A1C 7.5 %
[2016-09-21 04:18] LABS: BUN/Creatinine Ratio 13 (6-26); Calcium 8.9 mg/dL (8.6-10.8); Carbon Dioxide 26 mEq/L (19-29); Chloride 102 mEq/L (98-109); Glucose 127 mg/dL (70-99); Osmolality,Calculated 281 (280-300); Potassium 3.5 mEq/L (3.5-4.5); Sodium 135 mEq/L (136-145); eGFR For African Americans > 60 (> 60); eGFR For Non-African Americans > 60 (> 60)
[2016-09-21 04:19] LABS: Blood Urea Nitrogen 11 mg/dL (8-26)
[2016-09-21] MEDS: Budesonide/Formoterol 160/4.5 MDI IH SCH (08:15)
[2016-09-21] MEDS: *HR* Heparin 5,000 UNIT/ML VIAL SQ SCH (08:17)
[2016-09-21] MEDS: amLODIPine 5 MG TABLET PO SCH (08:17)
[2016-09-21] MEDS: Nicotine 21 MG PATCH.TD24 TD SCH (08:17)
[2016-09-21] MEDS: 0.9 % Sodium Chloride 1,000 ML IVC SCH (08:18)
[2016-09-21] MEDS: *HR* HYDROcodone/Acet 7.5/325 mg TABLET PO PRN (08:25)
[2016-09-21] MEDS: Insulin LISPRO 300 UNITS/3 ML VIAL SQ SCH ×2 (08:26→12:12)
--- NOTE | 2016-09-21 13:49 | Discharge Summary ---
Date of Encounter: 09/21/16 Time of Encounter: 10:30 - Discharge Diagnosis (1) Falls Priority: Primary Status: Acute Comments: Home health was recommended the patient refused. He states that he and his do not allow for people to come into their trailer (2) UTI (urinary tract infection) Priority: Primary Status: Ruled-out Comments: Ruled out, urine culture negative. Mild leukocytosis resolved, no indication for antibiotics. Patient to continue to cath himself as usual. Acute kidney injury resolved. Qualifiers: Urinary tract infection type: site unspecified Hematuria presence: without hematuria Qualified Code(s): N39.0 - Urinary tract infection, site not specified (3) Acute metabolic encephalopathy Priority: Primary Status: Resolved (4) Acute renal insufficiency Priority: Primary Status: Resolved (5) Diabetes Priority: Secondary Status: Chronic Comments: Relatively well controlled on with an A1c of 7.5%. Follow-up outpatient. Of note, patient was markedly hyperglycemic over 500 upon admission and he became hypoglycemic overnight on the first night of his admission. His sliding scale before meals and his nighttime doses of insulin was decreased but again on the second night of his admission, his glucoses again dropped and his basal and nighttime dosages were again decreased. Qualifiers: Diabetes mellitus type: type 2 Diabetes mellitus complication status: without complication Diabetes mellitus half-way insulin use: with manager terminal use Qualified Code(s): E11.9 - Type 2 diabetes mellitus without complications ; Z79.4 - long-term (current) use of insulin (6) COPD (chronic obstructive pulmonary disease) Priority: Secondary Status: Chronic Comments: No acute exacerbation. Patient denied shortness of breath above his norm throughout this admission. (7) HTN (hypertension) Priority: Secondary Status: Chronic Comments: Controlled. At home, patient is on amlodipine 10 mg daily, metoprolol 50 mg twice a day and both of these have been continued Qualifiers: Hypertension type: essential hypertension Qualified Code(s): I10 - Essential (primary) hypertension (8) Hyponatremia Priority: Primary Status: Resolved (9) Hypothyroidism Priority: Secondary Status: Chronic Comments: TSH checked last month was low, T4 normal, follow-up outpatient Qualifiers: Hypothyroidism type: unspecified Qualified Code(s): E03.9 - Hypothyroidism , unspecified (10) SIADH (syndrome of inappropriate ADH production) Priority: Secondary Status: Chronic (11) Small cell lung cancer Priority: Secondary Status: Chronic Qualifiers: Laterality: unspecified laterality Qualified Code(s): C34.90 - Malignant neoplasm of unspecified part of unspecified bronchus or lung (12) Protein-calorie malnutrition, moderate Priority: Primary Status: Acute Comments: Ensure added to his regimen. - Discharge Medications Prescriptions: Lactose-Reduced Food [Ensure High Protein] 1 bottle PO TID #90 can Miscellaneous Medical Supply [Attachment Set] 1 each MC PRN PRN #1 miscell PRN Reason: weakness Home Medications: Albuterol Neb [AccuNeb] 0.63 mg IH Q6H PRN 09/27/15 [History] Albuterol Sulfate [Albuterol Inhaler] 2 puff IH Q4HR PRN 09/27/15 [History] Amlodipine Besylate 10 mg PO DAILY 09/27/15 [History] Budesonide/Formoterol 160/4.5 [Symbicort 160/4.5] 2 puff IH BIDR 09/27/15 [ History] Clopidogrel [Plavix] 75 mg PO DAILY 09/27/15 [History] Metoprolol [Lopressor] 50 mg PO BID 09/27/15 [History] Omeprazole [PriLOSEC] 20 mg PO DAILY 09/27/15 [History] Simvastatin [Zocor] 10 mg PO QPM 09/27/15 [History] Levothyroxine [Synthroid] 125 mcg PO 0630 01/31/16 [History] Insulin ASPART [Novolog] 0 unit SQ TIDWM 02/05/16 [History] Gabapentin [Neurontin] 300 mg PO HS 02/17/16 [History] Ondansetron [Zofran] 1 tab PO Q8HR PRN #90 tablet 03/04/16 [Rx] Prochlorperazine Maleate [Compazine] 1 tab PO Q6HR PRN #90 tablet 03/04/16 [Rx] Amitriptyline [Elavil] 25 mg PO HS #90 tablet 08/25/16 [Rx] HYDROcodone/Acet 7.5/325 mg [[place] 7.5-325 mg] 1 tab PO Q6H PRN #90 tablet 08/25 [Rx] Tamsulosin [Flomax] 0.4 mg PO DAILY #90 cap.er.24h 08/25/16 [Rx] Loperamide [Imodium] 2 mg PO AD PRN #90 capsule 09/10/16 [Rx] Oxycodone HCl [Oxaydo] 5 mg PO Q2H PRN #90 tablet.orl 09/10/16 [Rx] Allopurinol [Zyloprim 100 MG] 100 mg PO DAILY 09/18/16 [History] Docusate [Colace] 100 mg PO BID 09/18/16 [History] Ferrous Sulfate 325 mg PO DAILY 09/18/16 [History] Glucagon,Human Recombinant [Glucagon Emergency Kit] 1 mg IJ ONCE PRN 09/18/16 [ History] Insulin NPH, HUMAN [HumuLIN N] 0 unit SQ DAILY 09/18/16 [History] Pramipexole Di-HCl [Pramipexole Dihydrochloride] 0.5 mg PO HS 09/18/16 [History] Sennosides [Senna] 17.2 mg PO HS PRN 09/18/16 [History] Lactose-Reduced Food [Ensure High Protein] 1 bottle PO TID #90 can 09/21/16 [Rx] Miscellaneous Medical Supply [Attachment Set] 1 each MC PRN PRN #1 miscell 09/21 [Rx] Allergies/Adverse Reactions: Allergies No Known Allergies Allergy (Verified 09/18/16 17:22) Procedures/tests Complete & Pending: Procedures Performed prior 72 hours Category Date Time Status ECG 12 lead ECG [ECG] Routine Y 09/18/16 17:35 Completed Date of admission: 09/18/16 21:56 Primary care physician: Lucy Jain CNP Consults: 09/19/16 12:26 Consult to Occupational Therapy [CONS] Routine Comment: Evaluate, develop and implement POC Consult to Physical Therapy [CONS] Routine Comment: Evaluate, develop and implement POC Consult to Forensic Specialist [CONS] Routine Reason for SW Consult: may need placed. falls at home. weak. stage 4 cancer Discharging clinician: Candi Estrada Anticipated date of discharge: 09/21/16 (refusing ) - Patient Status Disposition: Home, Self-Care Condition: Fair Functional capacity at discharge: uses cane/walker Overall status at discharge: patient is progressing back to baseline - Discharge Instructions Follow Up With: Lucy Jain CNP [Primary Care Provider] - Additional Instructions: Follow-up with primary care provider within one to 2 weeks - Diet and Activity Activity: ambulate only with your walker, increase activity as tolerated Diet: diabetic diet (With Ensure 3 times a day with meals) Hospital course: Mr. Swanson is a 66 year old male with past medical history of lung cancer, small cell carcinoma stage IV status post chemotherapy and radiation, diabetes, hypertension, dementia, SIADH, GERD, tobacco abuse, COPD, hypothyroidism. Patient presented to the emergency department with his chief complaint of weakness and increased falls. Patient had fallen twice in the past 48 hours prior to presentation and hit his head but did not lose consciousness. Workup in the emergency department consistent with a urinary tract infection. Head CT negative. Chest x-ray negative for acute processes. Patient was admitted to the hospitalist service for further evaluation and management. He was treated with ceftriaxone. Mild leukocytosis had resolved and his urine culture came back negative so antibiotics were not indicated. He also had acute kidney injury that also resolved. He was alert and oriented 3 throughout this admission. OT and PT recommended home health however patient and his refused. They were advised of the risks versus benefits choosing not to accept help but they continued to decline. Patient stating he has a Rollator home and was requesting a wheelchair so that his could help push him around, prescription written for a wheelchair prior to discharge. He was evaluated by nutrition who surmised he has moderate, non-severe protein calorie malnutrition and he was sent home with a one-month supply of Ensure high-protein. He ate well during this admission. He denied pain and states that his pain was controlled for the most part. Plain films of his hip negative for acute processes. His anemia remained stable. Likely cause of his falls and dehydration secondary to decreased by mouth intake. He was discharged home in stable condition with close outpatient follow-up recommended. ITS Impressions Head CT 09/18/16 17:32 IMPRESSION: No acute intracranial hemorrhage or mass effect. D/ / Jayce Morales MD / Jayce Morales MD Interpreting Provider: Jayce Morales MD Chest X-Ray 09/18/16 17:44 IMPRESSION: 1. No acute cardiopulmonary abnormality. 2. Decreased conspicuity of the patient's known left mid lung mass. D/ / Devaughn Mondragon MD / Devaughn Mondragon MD Interpreting Provider: Devaughn Mondragon MD Hip X-Ray 09/18/16 18:18 IMPRESSION: No acute fracture or subluxation. D/ / Savage Payne MD / Savage Payne MD Interpreting Provider: Savage Payne MD - Time Spent with Patient Total time spent providing and/or coordinating discharge services: - Constitutional Vitals: Temp Pulse Resp BP Pulse Ox 97.8 F 74 16 125/71 94 09/21/16 10:48 09/21/16 10:48 09/21/16 10:48 09/21/16 10:48 09/21/16 10:48 General appearance: Present: cachectic, A&O X 3, pleasant, no acute distress, loss of weight, answers questions appropriately - Head Head exam: Present: atraumatic, normocephalic - Eye Eye exam: Present: PERRL, conjuntiva pink, sclera anicteric Pupils: Present: PERRL - Neck Neck exam general surgery: Present: supple, trachea midline. Absent: lymphadenopathy - Respiratory Respiratory exam: Present: accessory muscle use, decreased breath sounds. Absent: rales, respiratory distress, rhonchi, wheezes - Cardiovascular Cardiovascular exam: Present: RRR, +S1, +S2. Absent: diastolic murmur, gallop, rubs, systolic murmur - GI/Abdominal GI/Abdominal exam: Present: normal bowel sounds, soft, no peritoneal signs. Absent: distended, tenderness - Extremities Exam Extremities exam: Present: warm, radial pulses palpable and symetrical. Absent : calf tenderness, cyanotic, pedal edema - Neurological Exam Neurological exam: Present: alert, CN II-XII intact, oriented X3, no focal deficits, strengths equal and symetr throughout. Absent: pronater drift, facial droop, speech deficit - Skin Skin exam: Present: dry, intact, pallor, warm
[2016-09-21 14:58] VITALS: BP 124/61
== END 2016-09-21 15:20 | disposition home or self-care (01) | DRG 604 ==
LOC: EMEROO 17:15 → 3BNU 17:15
PROVIDERS: ADMIT Internal Medicine; ATTEND Nurse Practitioner Family

== ENCOUNTER 2016-10-12 19:18 | Inpatient (IN) ==
--- NOTE | 2016-10-12 23:17 | Internal Med History&Physical ---
Date of Encounter: 10/12/16 Time of Encounter: 23:16 Assessment and Plan (1) Sepsis Current visit: Yes Status: Acute Pt has leukocytosis and heart rate more than 90. Possibly related to urinary tract infection. Uncertain if the patient had cultures and antibiotics at [facility]. I have requested for urine cultures and ceftriaxone. We may have to check the culture reports from [facility] as well. Lactate level is not elevated. Continue IV fluids Qualifiers: Qualified Code(s): A41.9 - Sepsis, unspecified organism (2) UTI (urinary tract infection) Current visit: Yes Status: Acute Uncertain if the patient had cultures and antibiotics at [facility]. I have requested for urine cultures and ceftriaxone. We may have to check the culture reports from [facility] as well. Qualifiers: Urinary tract infection type: site unspecified Hematuria presence: without hematuria Qualified Code(s): N39.0 - Urinary tract infection, site not specified (3) Diabetes Current visit: Yes Status: Chronic Continue home medications / sliding scale insulin Qualifiers: Diabetes mellitus type: type 2 Diabetes mellitus complication status: without complication Diabetes mellitus continuous churn buttermaker insulin use: with group home use Qualified Code(s): E11.9 - Type 2 diabetes mellitus without complications ; Z79.4 - truck terminal manager (current) use of insulin (4) Hypothyroidism Current visit: Yes Status: Chronic Continue Synthroid Qualifiers: Hypothyroidism type: unspecified Qualified Code(s): E03.9 - Hypothyroidism , unspecified (5) HTN (hypertension) Current visit: Yes Status: Chronic Monitor blood pressure. Qualifiers: Hypertension type: essential hypertension Qualified Code(s): I10 - Essential (primary) hypertension (6) Small cell lung cancer Current visit: Yes Status: Chronic Oncology consult Qualifiers: Laterality: unspecified laterality Qualified Code(s): C34.90 - Malignant neoplasm of unspecified part of unspecified bronchus or lung (7) DVT prophylaxis Current visit: Yes Status: Acute Heparin Internal Medicine - H&P: HPI Chief complaint: Fall from bed Admitted From: Emergency Dept Plans for Post Hospital Care: Home History of present illness: Mr. Swanson is a 66 year old male with past medical history of extensive stage small cell lung cancer and synchronous primary squamous cell lung cancer, DM ( insulin treated), hypertension, dementia, SIADH, GERD, COPD, Hypothyroidism, CAD s/p stents. He was taken to ER at [facility], after he fell off the bed earlier today fell face down. No loss of consciousness reported. He denies headache/blurry vision, weakness of the extremities, pain in the hips/ knees. He reports some pain in the right sided ribs but denies bruising. He denies shortness of breath, cough, expectoration, fever, chills, abdominal pain , dysuria, hematuria, bowel problems. He was evaluated in the ER and was noted to have UTI. Pt and his apparently requested for transfer to [facility], as his oncologist is based here and has care here. Reviewed labs / data: CT head reported atrophy and chronic microvascular ischemic change. No bleed or positive mass effect. No abnormal extra-axial fluid collection or calvarial fracture. Urinalysis showed nitrates and leukocyte esterase. Serum sodium is 136 potassium 4 BUN 17 creatinine 1.29 calcium 9.2, troponin less than 0.056, lactic acid 1.1, WBC 19.9, hemoglobin 10.1, hematocrit 30.7, platelets 430. Glucose on the lab was 26; bedside was 168. Past Med Surg Social Fam HX - Past Medical History Medical history: cancer, COPD, diabetes, hyperlipidemia, hypertension, thyroid disease, TIA, other Psychiatric history: no psych history - Past Surgical History Surgical History: other - Social History Smoking Status: Current every day smoker Smokeless Tobacco Status: No Alcohol use: occasionally Drug use: none - Family History Father Living Status: Hx Family Cardiac Disorders: Yes (DE) Hx Family Respiratory Disorders: Yes Internal Medicine - H&P: Meds Albuterol Neb [AccuNeb] 0.63 mg IH Q6H PRN 09/27/15 [History] Albuterol Sulfate [Albuterol Inhaler] 2 puff IH Q4HR PRN 09/27/15 [History] Amlodipine Besylate 10 mg PO DAILY 09/27/15 [History] Budesonide/Formoterol 160/4.5 [Symbicort 160/4.5] 2 puff IH BIDR 09/27/15 [ History] Clopidogrel [Plavix] 75 mg PO DAILY 09/27/15 [History] Metoprolol [Lopressor] 50 mg PO BID 09/27/15 [History] Omeprazole [PriLOSEC] 20 mg PO DAILY 09/27/15 [History] Simvastatin [Zocor] 10 mg PO QPM 09/27/15 [History] Levothyroxine [Synthroid] 125 mcg PO 0630 01/31/16 [History] Insulin ASPART [Novolog] 0 unit SQ TIDWM 02/05/16 [History] Gabapentin [Neurontin] 300 mg PO HS 02/17/16 [History] Amitriptyline [Elavil] 25 mg PO HS #90 tablet 08/25/16 [Rx] Tamsulosin [Flomax] 0.4 mg PO DAILY #90 cap.er.24h 08/25/16 [Rx] Loperamide [Imodium] 2 mg PO AD PRN #90 capsule 09/10/16 [Rx] Oxycodone HCl [Oxaydo] 5 mg PO Q2H PRN #90 tablet.orl 09/10/16 [Rx] Docusate [Colace] 100 mg PO BID 09/18/16 [History] Glucagon,Human Recombinant [Glucagon Emergency Kit] 1 mg IJ ONCE PRN 09/18/16 [ History] Insulin NPH, HUMAN [HumuLIN N] 0 unit SQ DAILY 09/18/16 [History] Pramipexole Di-HCl [Pramipexole Dihydrochloride] 0.5 mg PO HS 09/18/16 [History] Lactose-Reduced Food [Ensure High Protein] 1 bottle PO TID #90 can 09/21/16 [Rx] Miscellaneous Medical Supply [Attachment Set] 1 each MC PRN PRN #1 miscell 09/21 [Rx] Morphine Sulfate SR (12 HR) [MS Contin] 15 mg PO Q12HR #60 10/05/16 [Rx] Ipilimumab [Yervoy] 10/12/16 [History] Nivolumab 10/12/16 [History] Nivolumab [Opdivo] 10/12/16 [History] Allergies No Known Allergies Allergy (Verified 10/05/16 17:59) All Systems PM: A 10-system review of systems was performed and is negative for pertinent findings except as documented above in the HPI. - Constitutional Vitals: Temp Pulse Resp BP Pulse Ox 99.5 F 97 18 152/85 97 10/12/16 21:04 10/12/16 21:04 10/12/16 21:04 10/12/16 21:04 10/12/16 21:04 Exam: General: Not in acute distress at the time of my evaluation. Confused at times. Her denies new changes HEENT: Oral mucosa is dry. No conjunctival palor or scleral icterus Neck: No obvious neck swellings Lungs: Left basal crackles present Cardiac: Regular rate and rhythm. No significant murmurs Abdomen: Soft, non tender. Bowel sounds present Genitourinary: No caraballo catheter Neurological: Alert and Confused at times. No gross localizing deficits Psych: Not aggressive or agitated Extremities: no significant leg edema Skin: No generalized rash Internal Med - H&P Results - Labs CBC & Chem 7: 10/13/16 01:10 10/13/16 01:10
[2016-10-12] MEDS ORDERED: *HR* OxyCODONE Immed Rel 5 MG TABLET PO PRN (23:53)
[2016-10-12] MEDS ORDERED: Albuterol Neb 0.63 MG/3 ML VIAL IH PRN (23:53)
[2016-10-12] MEDS ORDERED: *HR* Dextrose 50 % in Water (Syg) 50 ML SYRINGE IVP PRN (23:57)
[2016-10-12] MEDS ORDERED: Dextrose Gel 15 GM PO PRN ×2 (23:57)
[2016-10-12] MEDS ORDERED: D5% in Water 1,000 ML IVC PRN (23:57)
[2016-10-13] MEDS: Insulin LISPRO 300 UNITS/3 ML VIAL SQ SCH ×5 (01:09→20:35)
[2016-10-13] MEDS: Gabapentin 300 MG CAPSULE PO SCH ×2 (01:10→20:37)
[2016-10-13 01:30] LABS: Basophils % 0.2 %; Eosinophils % 0.3 %; Hematocrit 28.6 % (37.5-50.1); Hemoglobin 9.7 g/dL (12.9-16.9); Immature Granulocytes % 1.1 % (0-4); Lymphocytes % 6.5 %; Mean Corpuscular HGB Conc 33.9 g/dL (31.6-35.5); Mean Corpuscular Hemoglobin 30.4 pg (28.0-33.3); Mean Corpuscular Volume 89.7 fL (83.0-100.0); Mean Platelet Volume 9.4 fL (9.4-12.4); Monocytes # 1.1 K/mcL (0.0-1.3); Monocytes % 7.1 %; Neutrophils # 12.9 K/mcL (1.6-8.9); Platelet Count 371 K/mcL (140-400); Red Blood Count 3.19 M/mcL (4.19-5.50); Red Cell Distribution Width 13.2 % (11.5-14.5); Segmented Neutrophils % 84.8 %
[2016-10-13 01:47] LABS: BUN/Creatinine Ratio 15 (6-26); Blood Urea Nitrogen 18 mg/dL (8-26); Calcium 9.3 mg/dL (8.6-10.8); Carbon Dioxide 21 mEq/L (19-29); Chloride 95 mEq/L (98-109); Glucose 399 mg/dL (70-99); Osmolality,Calculated 289 (280-300); Potassium 4.3 mEq/L (3.5-4.5); Sodium 130 mEq/L (136-145); eGFR For African Americans > 60 (> 60); eGFR For Non-African Americans 59 (> 60)
[2016-10-13] MEDS: Nicotine 21 MG PATCH.TD24 TD SCH ×2 (04:12→07:52)
[2016-10-13] MEDS: 0.9 % Sodium Chloride 1,000 ML IVC SCH (05:19)
[2016-10-13] MEDS: *HR* Morphine Sulfate SR (12 HR) 15 MG TABLET.ER PO SCH ×2 (05:27→17:15)
[2016-10-13] MEDS: Budesonide/Formoterol 160/4.5 MDI IH SCH ×2 (07:52→20:59)
[2016-10-13] MEDS: amLODIPine 5 MG TABLET PO SCH (08:04)
[2016-10-13] MEDS: Lactobacillus 1 EACH CAP.SPRINK PO SCH ×2 (08:04→20:36)
[2016-10-13] MEDS: *HR* Heparin 5,000 UNIT/ML VIAL SQ SCH ×2 (08:05→17:12)
[2016-10-13] MEDS: (Ensure High Protein] 1 BOTTLE) PO SCH ×2 (08:08→14:23)
--- NOTE | 2016-10-13 08:38 | Oncology Inp Consult Note ---
Date of Encounter: 10/13/16 Time of Encounter: 08:35 - Data of Consult Patient: known to practice within the last 3 years Consult date: 10/13/16 Requesting Physician: Jackson Gan Primary Care Provider: Lucy Jain CNP - Consult Narrative Reason for consult: Lung cancer, ongoing immunotherapy. History of present illness: Mr. Swanson is a 66 year old male patient of the cancer center who is established with me at the cancer [place] for ongoing management of his advanced lung cancer. He was last seen in the office 10/05/16 and I have summarized patient's heme/onc background below based on my most recent office report. Oncologic history: Initially presented with SVC syndrome and Chest CT 09/27/15 showed a 2.4 cm RUL nodule with several, additional spiculated nodules in the right upper lobe 4.3 cm left lower lobe mass. Anterior mediastinal lymph node 2.6 cm. 3 cm precarinal lymph node. 2.6 cm right hilar lymph node. Mediastinal lymphadenopathy is causing 90% SVC obstruction. PET/CT scan 10/01/15 confirmed associated hypermetabolic activity. Contrast CT of the head was negative for metastatic disease.Unable to have brain MRI d/t severe claustrophobia. He was initially evaluated at [facility] for his lung cancer but elected to transfer care to [facility] for proximity to his home. He was also diagnosed with paraneoplastic SIADH. 10/09/15,bronch/EBUSNA by Dr. Jean confirmed SCLC right hilar nodes positive for CK 7, TTF-1, synaptophysin. Ki-67 showed high proliferative index. He went on to complete 6 cycles of combination chemotherapy and restaging scan showed an enlargement left lower lobe mass incongruous with the rest of his disease which showed excellent treatment response. Biopsy left lung mass confirmed poorly differentiated squamous cell carcinoma indicating a synchronous, second primary lung cancer. Treated with SBRT. Biopsy left adrenal gland 09/02/16 was positive for small cell carcinoma based on positive TTF-1, synaptophysin, CK 7, Ki-67 70%. Now on treatment with combination immunotherapy. Treatment summary: 10/17-02/27/16: 6 cycles of cisplatin D1 and etoposide day 1-3 regimen on 10/17-. 04/20-05/05/16: PCI per Dr. Brito. 04/20-05/01/16: SBRT to left lower lobe. 09/28/16: Started Ipilimumab plus Nivolumab combination every 3 weeks 4. Most recent scans: CT head neck, chest 08/10/16 shows stable findings with no evidence of progressive malignancy. CT abdomen/pelvis 08/10/16 showed developing mass and left adrenal gland suspicious for adrenal metastatic disease. Stable cystic pancreatic nodule. Differentials include pseudocyst versus IPMN versus cystic neoplasm. Neurogenic bladder. Patient is currently hospitalized for sepsis due to UTI with uncontrolled diabetes after presenting with altered mental status and mechanical fall at home. Oncology is consulted re: patient's underlying lung cancer. Patient seen and examined at bedside. Chart reviewed for details of ongoing care by hospital team which is much appreciated. He still somewhat intermittently confused state the time of my seeing him but is able to answer question of follow commands intermittently. He has received 1 dose of combination immunotherapy which he appears to have tolerated relatively well with no unexpected side effects. Rest of past medical, surgical, family, social history detailed below and verified with patient today. Review of systems: 12 point review of systems performed with patient and positive findings noted in history of present illness. All other systems are negative: Physical exam: Vital Signs Temp 97.8 F 10/13/16 04:13 Pulse 96 10/13/16 04:13 Resp 18 10/13/16 04:13 BP 119/69 10/13/16 04:13 Pulse Ox 98 10/13/16 04:13 GENERAL: Alert and oriented, acutely ill appearing. Mental Status: Affect appropriate for circumstances HEENT: Sclerae anicteric. No mucositis or thrush. No other oral or pharyngeal lesions or erythema. Skin: No rashes or petechiae. No evidence of skin malignancy Lymph nodes: No cervical, supraclavicular, axillary, or inguinal adenopathy. Lungs: Clear to auscultation bilaterally. Clear to percussion bilaterally. Cardiovascular: Regular rate and rhythm. No gallops, murmurs, or rubs. Abdomen: Soft, nontender; No organomegaly or masses palpable. Extremities: No edema. No calf swelling or tenderness. No joint deformity. Neurologic: Alert, normal gait; no focal weakness or sensory abnormalities. Results: Laboratory Last Values WBC 15.2 K/mcL (4.3-11.1) H 10/13/16 01:10 RBC 3.19 M/mcL (4.19-5.50) L 10/13/16 01:10 Hgb 9.7 g/dL (12.9-16.9) L 10/13/16 01:10 Hct 28.6 % (37.5-50.1) L 10/13/16 01:10 MCV 89.7 fL (83.0-100.0) 10/13/16 01:10 MCH 30.4 pg (28.0-33.3) 10/13/16 01:10 MCHC 33.9 g/dL (31.6-35.5) 10/13/16 01:10 RDW 13.2 % (11.5-14.5) 10/13/16 01:10 Plt Count 371 K/mcL (140-400) 10/13/16 01:10 MPV 9.4 fL (9.4-12.4) 10/13/16 01:10 Immature Gran % 1.1 % (0-4) 10/13/16 01:10 Seg Neutrophils % 84.8 % 10/13/16 01:10 Lymphocytes % 6.5 % 10/13/16 01:10 Monocytes % 7.1 % 10/13/16 01:10 Eosinophils % 0.3 % 10/13/16 01:10 Basophils % 0.2 % 10/13/16 01:10 Neutrophils # 12.9 K/mcL (1.6-8.9) H 10/13/16 01:10 Lymphocytes # 1.0 K/mcL (0.6-4.6) 10/13/16 01:10 Monocytes # 1.1 K/mcL (0.0-1.3) 10/13/16 01:10 Eosinophils # 0.0 K/mcL (0.0-0.6) 10/13/16 01:10 Basophils # 0.0 K/mcL (0.0-0.2) 10/13/16 01:10 Sodium 130 mEq/L (136-145) L 10/13/16 01:10 Potassium 4.3 mEq/L (3.5-4.5) 10/13/16 01:10 Chloride 95 mEq/L (98-109) L 10/13/16 01:10 Carbon Dioxide 21 mEq/L (19-29) 10/13/16 01:10 BUN 18 mg/dL (8-26) 10/13/16 01:10 Creatinine 1.22 mg/dL (0.72-1.25) 10/13/16 01:10 Est GFR ( Amer) > 60 (> 60) 10/13/16 01:10 Est GFR (Non-Af Amer) 59 (> 60) L 10/13/16 01:10 BUN/Creatinine Ratio 15 (6-26) 10/13/16 01:10 Glucose 399 mg/dL (70-99) H 10/13/16 01:10 POC Glucose 406 (58-89) H* 10/13/16 00:31 Calculated Osmolality 289 (280-300) 10/13/16 01:10 Calcium 9.3 mg/dL (8.6-10.8) 10/13/16 01:10 Radiographic studies: I personally reviewed and interpreted patient's most recent imaging studies dated 10/13/16. I discussed the findings with the patient today. Hip X-Ray 10/13/16 10:05 IMPRESSION: Possible acute nondisplaced left greater trochanteric fracture. CT or MRI is suggested for further evaluation. Osteopenia. D/ / 10/13/2016 11:19:43 Avery Gonzalez MD / kana Interpreting Provider: Avery Gonzalez MD Impression/recommendations: Lung cancer: He has a history of both small and non-small cell (squamous histology) lung cancer with more recent metastatic small cell lung cancer to the adrenals. He is on a combination immunotherapy and escalated one cycle of treatment today. Currently hospitalized for acute delirium. Today on a pessary related to urinary tract infection and uncontrolled hyperglycemia. His recent imaging did not show any evidence of intracranial involvement with lung cancer. He is not manifesting any side effects of immunotherapy present such as diarrhea , adrenal insufficiency, pneumonitis, cerebritis but the symptoms to look out for during patient's hospital admission. If he starts to manifest any such symptoms, he will need aggressive support with immunosuppressive including steroids etc. We'll be on hand to start supportive measures if needed. Delirium: This is likely extended on the basis of metabolic etiology but consideration for contribution from recent immunotherapy would be reasonable if no improvement after I properly treating UTI and hyperglycemia. If mental status remained altered in spite of above, we'll consider brain imaging for further evaluation and a trial of steroids. This is not indicated at this time. Encounter for immunotherapy monitoring: He is not manifesting any clear-cut side effects of his recent immunotherapy but we'll monitor closely while he is in-house. We'll follow the patient along side you during this hospitalization but please do not hesitate to call regarding interval hematologic questions as they arise. Thank you for your excellent ongoing care for allowing us to see him while in- house. This report was created using voice recognition software and may contain errors. It was signed but not edited to expedite communication. Corrections will be made in a separate addendum as needed. Past Med Surg Social Fam HX - Past Medical History Medical history: cancer, COPD, diabetes, hyperlipidemia, hypertension, thyroid disease, TIA, other Psychiatric history: no psych history - Past Surgical History Surgical History: other - Social History Smoking Status: Current every day smoker Smokeless Tobacco Status: No Alcohol use: occasionally Drug use: none - Family History Father Living Status: Hx Family Cardiac Disorders: Yes (OK) Hx Family Respiratory Disorders: Yes Medications and Allergies Albuterol Neb [AccuNeb] 0.63 mg IH Q6H PRN 09/27/15 [History] Albuterol Sulfate [Albuterol Inhaler] 2 puff IH Q4HR PRN 09/27/15 [History] Amlodipine Besylate 10 mg PO DAILY 09/27/15 [History] Budesonide/Formoterol 160/4.5 [Symbicort 160/4.5] 2 puff IH BIDR 09/27/15 [ History] Clopidogrel [Plavix] 75 mg PO DAILY 09/27/15 [History] Metoprolol [Lopressor] 50 mg PO BID 09/27/15 [History] Omeprazole [PriLOSEC] 20 mg PO DAILY 09/27/15 [History] Simvastatin [Zocor] 10 mg PO QPM 09/27/15 [History] Levothyroxine [Synthroid] 125 mcg PO 0630 01/31/16 [History] Insulin ASPART [Novolog] 0 unit SQ TIDWM 02/05/16 [History] Gabapentin [Neurontin] 300 mg PO HS 02/17/16 [History] Amitriptyline [Elavil] 25 mg PO HS #90 tablet 08/25/16 [Rx] Tamsulosin [Flomax] 0.4 mg PO DAILY #90 cap.er.24h 08/25/16 [Rx] Loperamide [Imodium] 2 mg PO AD PRN #90 capsule 09/10/16 [Rx] Oxycodone HCl [Oxaydo] 5 mg PO Q2H PRN #90 tablet.orl 09/10/16 [Rx] Docusate [Colace] 100 mg PO BID 09/18/16 [History] Glucagon,Human Recombinant [Glucagon Emergency Kit] 1 mg IJ ONCE PRN 09/18/16 [ History] Insulin NPH, HUMAN [HumuLIN N] 0 unit SQ DAILY 09/18/16 [History] Pramipexole Di-HCl [Pramipexole Dihydrochloride] 0.5 mg PO HS 09/18/16 [History] Lactose-Reduced Food [Ensure High Protein] 1 bottle PO TID #90 can 09/21/16 [Rx] Miscellaneous Medical Supply [Attachment Set] 1 each PRN PRN #1 miscell 09/21 [Rx] Morphine Sulfate SR (12 HR) [MS Contin] 15 mg PO Q12HR #60 10/05/16 [Rx] Ipilimumab [Yervoy] 10/12/16 [History] Nivolumab 10/12/16 [History] Nivolumab [Opdivo] 10/12/16 [History] Allergies No Known Allergies Allergy (Verified 10/05/16 17:59) Oncology - Exam - Constitutional Vitals: Temp Pulse Resp BP Pulse Ox 97.8 F 96 18 119/69 98 10/13/16 04:13 10/13/16 04:13 10/13/16 04:13 10/13/16 04:13 10/13/16 04:13 Oncology - Results - Labs Labs: Short CBC 10/13/16 Range/Units 01:10 WBC 15.2 H (4.3-11.1) K/mcL Hgb 9.7 L (12.9-16.9) g/dL Hct 28.6 L (37.5-50.1) % Plt Count 371 (140-400) K/mcL Neutrophils # 12.9 H (1.6-8.9) K/mcL BMP 10/13/16 01:10 Sodium 130 L Potassium 4.3 Chloride 95 L Carbon Dioxide 21 BUN 18 Creatinine 1.22 Glucose 399 H Calcium 9.3 Consult Discharge Plan - Plan Referrals: Lucy Jain CNP [Primary Care Provider] - (web request sent on 10/13/16)
[2016-10-13 09:15] LABS: Thyroid Stimulating Hormone 2.998 mcIU/mL (0.350-4.840)
[2016-10-13 10:32] LABS: Bilirubin,Urine Negative (Negative); Blood,Urine Trace (Negative); Clarity,Urine Cloudy (Clear); Color,Urine Yellow (Yellow); Glucose,Urine (UA) 500 mg/dL (Normal); Ketones,Urine Trace mg/dL (Negative); Leukocyte Esterase,Urine Moderate (Negative); Nitrite,Urine Positive (Negative); Protein,Urine 30 mg/dL (Neg-Trace); Specific Gravity,Urine 1.014 (1.010-1.025); Urobilinogen,Urine Normal (Normal)
[2016-10-13 10:35] LABS: Bacteria,Urine None Seen per hpf (None-Few); Hyaline Casts,Urine None Seen per lpf (None-Few); RBC,Urine 0-3 per hpf (0-3); Squamous Epithelial Cell,Urine Many per lpf (None-Few); WBC,Urine 30-50 per hpf (0-3)
--- NOTE | 2016-10-13 14:35 | Internal Med Progress Note ---
Date of Encounter: 10/14/16 Time of Encounter: 14:32 - Assessment and plan (1) UTI (urinary tract infection) Status: Acute Assessment and plan: continue iv ceftriaxone will follow urine cx. Denies any urinary symptoms at this time but has elevated white count. Qualifiers: Urinary tract infection type: site unspecified Hematuria presence: without hematuria Qualified Code(s): N39.0 - Urinary tract infection, site not specified (2) Falls Status: Acute Assessment and plan: Status post fall 2 days ago, denies any head injury. Qualifiers: Encounter type: initial encounter Qualified Code(s): W19.XXXA - Unspecified fall, initial encounter (3) Sepsis Status: Acute Assessment and plan: Meets sepsis criteria for tachycardia and leukocytosis with UTI. Lactic acid at 1.0. Started on IV ceftriaxone, will continue the same. Will follow urine cultures and adjust antibiotics accordingly. Qualifiers: Sepsis type: sepsis due to unspecified organism (4) Hypothyroidism Status: Chronic Assessment and plan: Continue Synthroid Qualifiers: Hypothyroidism type: unspecified Qualified Code(s): E03.9 - Hypothyroidism , unspecified (5) HTN (hypertension) Status: Chronic Assessment and plan: Monitor blood pressure Qualifiers: Hypertension type: essential hypertension Qualified Code(s): I10 - Essential (primary) hypertension (6) Small cell lung cancer Status: Chronic Assessment and plan: History of small cell lung cancer, oncology has been consulted. Will follow recommendations. Qualifiers: Laterality: unspecified laterality Qualified Code(s): C34.90 - Malignant neoplasm of unspecified part of unspecified bronchus or lung (7) Hip fracture, left Status: Acute Assessment and plan: Status post fall 2 days ago, x-ray of the hip shows nondisplaced left greater trochanteric fracture. Denies much pain at this time, we will consult orthopedics for further management. Continue DVT prophylaxis. Qualifiers: Encounter type: initial encounter Fracture type: closed Qualified Code(s) : S72.002A - Fracture of unspecified part of neck of left femur, initial encounter for closed fracture - Time Spent With Patient 25 - 35 minutes - Subjective Interval history: patidayanara seen at the bedside , transferred from [facility] status post fall. Hip x-ray noted to have left trochanteric fracture and UA also positive for UTI. Patient denies any pain or discomfort at this time, denies any shortness of breath, cough or fever. - Constitutional Vitals: Temp Pulse Resp BP Pulse Ox 97.4 F L 92 18 125/63 95 10/13/16 11:19 10/13/16 11:19 10/13/16 11:19 10/13/16 11:19 10/13/16 11:19 General appearance: Present: A&O X 3, no acute distress Exam: HEENT: Oral mucosa is dry. No conjunctival palor or scleral icterus Neck: No obvious neck swellings Lungs: b/l clear, no added sounds Cardiac: Regular rate and rhythm. No significant murmurs Abdomen: Soft, non tender. Bowel sounds present Genitourinary: No caraballo catheter Neurological: Alert and Confused at times. No gross localizing deficits Psych: Not aggressive or agitated Extremities: no significant leg edema Skin: No generalized rash Internal Medicine: Result - Labs CBC & Chem 7: 10/14/16 08:09 10/14/16 08:09 Labs: Short CBC 10/13/16 Range/Units 01:10 WBC 15.2 H (4.3-11.1) K/mcL Hgb 9.7 L (12.9-16.9) g/dL Hct 28.6 L (37.5-50.1) % Plt Count 371 (140-400) K/mcL Neutrophils # 12.9 H (1.6-8.9) K/mcL BMP 10/13/16 01:10 Sodium 130 L Potassium 4.3 Chloride 95 L Carbon Dioxide 21 BUN 18 Creatinine 1.22 Glucose 399 H Calcium 9.3 Urine 10/13/16 Range/Units 10:15 Urine Color Yellow (Yellow) Urine Clarity Cloudy A (Clear) Urine pH 6.0 (5.0-8.0) pH Units Ur Specific [place] 1.014 (1.010-1.025) Urine Protein 30 H (Neg-Trace) mg/dL Urine Glucose (UA) 500 H (Normal) mg/dL - Impressions Impressions Hip X-Ray 10/13/16 10:05 IMPRESSION: Possible acute nondisplaced left greater trochanteric fracture. CT or MRI is suggested for further evaluation. Osteopenia. D/ / 10/13/2016 11:19:43 Avery Gonzalez MD / [email or web address] Interpreting Provider: Avery Gonzalez MD Consult Discharge Plan - Plan Instructions: Urinary Tract Infection in Men (DC), Diabetes Mellitus Type 2 in Adults (DC) Referrals: Lucy Jain CHAIR MECHANIC [Primary Care Provider] - (web request sent on 10/13/16) Prescriptions: Lactose-Reduced Food [Boost High Protein] 237 ml PO DAILY #90 liquid Levofloxacin [Levaquin] 500 mg PO DAILY #5 tablet
--- NOTE | 2016-10-13 18:25 | Orthopedic Consult Note ---
Date of Encounter: 10/13/16 Time of Encounter: 18:19 History of Present Illness Chief complaint: Left hip pain HPI: Mr. Swanson is a 66 year old male who has had left hip pain for several weeks time. The patient apparently fell several weeks ago. He was seen in the emergency room and [facility] had x-rays taken and these were reported as negative. Apparently the patient fell a few days ago and somehow aggravated or reinjured his left hip. He was seen initially at [facility] had x-rays taken and then was transferred to [facility] at the patient's request. Patient does have a significant medical history of a complex lung cancer history including 2 primary tumors, he is currently on an acute treatment protocol. Patient states that his left leg seems to give out on him. Pain is predominantly in the mid thigh. Pain he initially was in the hip region several weeks ago but now seems to be centered more in the thigh and distal femur. A complete history and physical data please refer to the completed portion the medical chart. Pertinent orthopedic examination reveals a cachectic appearing gentleman in minimal distress. There is only minor tenderness over the left hip. There is no significant pain with internal or external rotation or flexion. No edema is noted. I reviewed x-rays from 2116. These show what I suspect is a essence nondisplaced greater trochanteric fracture. This is not an intertrochanteric fracture nor involvement of the neck. Repeat x-rays recently taken reveal what appears to be the same fracture with minimal changes. Impression: Subacute greater trochanteric fracture left hip Recommendation: This fracture will not require any surgical intervention. The patient can be weightbearing as tolerated utilizing a walker. I discussed with the patient and that he should be using the walker at all times. We certainly want to avoid any further falls which could potentially shift the fracture though this is unlikely and I will inspect the patient is not a candidate for surgery unless this was truly a structural fracture. I discussed with the patient and that he should have follow-up x-rays in about 4 weeks ' time. I will be happy to see him as an outpatient at my office in [place] or he could have x-rays performed here as an outpatient I would be happy to review them for him. Thank you very much for allowing me to see care for Mr. Swanson. Sincerely, Rian Travis,DO Past Med Surg Social Fam HX - Past Medical History Medical history: cancer, COPD, diabetes, hyperlipidemia, hypertension, thyroid disease, TIA, other Psychiatric history: no psych history - Past Surgical History Surgical History: other - Social History Smoking Status: Current every day smoker Smokeless Tobacco Status: No Alcohol use: occasionally Drug use: none - Family History Father Living Status: Hx Family Cardiac Disorders: Yes ([place]) Hx Family Respiratory Disorders: Yes Medications and Allergies Albuterol Neb [AccuNeb] 0.63 mg IH Q6H PRN 09/27/15 [History] Albuterol Sulfate [Albuterol Inhaler] 2 puff IH Q4HR PRN 09/27/15 [History] Amlodipine Besylate 10 mg PO DAILY 09/27/15 [History] Budesonide/Formoterol 160/4.5 [Symbicort 160/4.5] 2 puff IH BIDR 09/27/15 [ History] Clopidogrel [Plavix] 75 mg PO DAILY 09/27/15 [History] Metoprolol [Lopressor] 50 mg PO BID 09/27/15 [History] Omeprazole [PriLOSEC] 20 mg PO DAILY 09/27/15 [History] Simvastatin [Zocor] 10 mg PO QPM 09/27/15 [History] Levothyroxine [Synthroid] 125 mcg PO 0630 01/31/16 [History] Insulin ASPART [Novolog] 0 unit SQ TIDWM 02/05/16 [History] Gabapentin [Neurontin] 300 mg PO HS 02/17/16 [History] Amitriptyline [Elavil] 25 mg PO HS #90 tablet 08/25/16 [Rx] Tamsulosin [Flomax] 0.4 mg PO DAILY #90 cap.er.24h 08/25/16 [Rx] Loperamide [Imodium] 2 mg PO AD PRN #90 capsule 09/10/16 [Rx] Oxycodone HCl [Oxaydo] 5 mg PO Q2H PRN #90 tablet.orl 09/10/16 [Rx] Docusate [Colace] 100 mg PO BID 09/18/16 [History] Glucagon,Human Recombinant [Glucagon Emergency Kit] 1 mg IJ ONCE PRN 09/18/16 [ History] Insulin NPH, HUMAN [HumuLIN N] 0 unit SQ DAILY 09/18/16 [History] Pramipexole Di-HCl [Pramipexole Dihydrochloride] 0.5 mg PO HS 09/18/16 [History] Lactose-Reduced Food [Ensure High Protein] 1 bottle PO TID #90 can 09/21/16 [Rx] Miscellaneous Medical Supply [Attachment Set] 1 each MC PRN PRN #1 miscell 09/21 [Rx] Morphine Sulfate SR (12 HR) [MS Contin] 15 mg PO Q12HR #60 10/05/16 [Rx] Ipilimumab [Yervoy] 10/12/16 [History] Nivolumab 10/12/16 [History] Nivolumab [Opdivo] 10/12/16 [History] Allergies No Known Allergies Allergy (Verified 10/05/16 17:59) All Systems Reviewed: A 10-system review of systems was performed and is negative for pertinent findings except as documented above in the HPI. Physical Exam - Constitutional Vitals: Temp Pulse Resp BP Pulse Ox 99.2 F 85 18 116/63 92 10/13/16 15:30 10/13/16 15:30 10/13/16 15:30 10/13/16 15:30 10/13/16 15:30 Results - Labs Result Diagrams: 10/13/16 01:10 10/13/16 01:10 Labs: Abnormal lab results WBC 15.2 K/mcL (4.3-11.1) H 10/13/16 01:10 RBC 3.19 M/mcL (4.19-5.50) L 10/13/16 01:10 Hgb 9.7 g/dL (12.9-16.9) L 10/13/16 01:10 Hct 28.6 % (37.5-50.1) L 10/13/16 01:10 Neutrophils # 12.9 K/mcL (1.6-8.9) H 10/13/16 01:10 Sodium 130 mEq/L (136-145) L 10/13/16 01:10 Chloride 95 mEq/L (98-109) L 10/13/16 01:10 Est GFR (Non-Af Amer) 59 (> 60) L 10/13/16 01:10 Glucose 399 mg/dL (70-99) H 10/13/16 01:10 POC Glucose 318 (58-89) H 10/13/16 16:19 Urine Clarity Cloudy (Clear) A 10/13/16 10:15 Urine Protein 30 mg/dL (Neg-Trace) H 10/13/16 10:15 Urine Glucose (UA) 500 mg/dL (Normal) H 10/13/16 10:15 Urine Ketones Trace mg/dL (Negative) H 10/13/16 10:15 Urine Blood Trace (Negative) H 10/13/16 10:15 Urine Nitrite Positive (Negative) A 10/13/16 10:15 Ur Leukocyte Esterase Moderate (Negative) H 10/13/16 10:15 Urine Microscopic WBC 30-50 per hpf (0-3) H 10/13/16 10:15 Ur Squamous Epith Cells Many per lpf (None-Few) H 10/13/16 10:15 Ur Culture Indicated? YES (NO) A 10/13/16 10:15 H & H 10/13/16 Range/Units 01:10 Hgb 9.7 L (12.9-16.9) g/dL Hct 28.6 L (37.5-50.1) % All other labs normal. - Diagnostic results Hip AP/Lateral x-ray: image reviewed Consult Discharge Plan - Plan Referrals: Lucy Jain, [employer] [Primary Care Provider] - (web request sent on 10/13/16)
[2016-10-14] MEDS: *HR* Heparin 5,000 UNIT/ML VIAL SQ SCH ×2 (00:09→08:56)
[2016-10-14] MEDS: 0.9 % Sodium Chloride 1,000 ML IVC SCH (00:10)
[2016-10-14] MEDS: *HR* Morphine Sulfate SR (12 HR) 15 MG TABLET.ER PO SCH (05:40)
[2016-10-14] MEDS: Budesonide/Formoterol 160/4.5 MDI IH SCH (07:44)
[2016-10-14 08:19] LABS: Basophils % 0.1 %; Eosinophils # 0.1 K/mcL (0.0-0.6); Eosinophils % 0.4 %; Hematocrit 26.7 % (37.5-50.1); Hemoglobin 8.9 g/dL (12.9-16.9); Immature Granulocytes % 1.7 % (0-4); Lymphocytes # 1.1 K/mcL (0.6-4.6); Lymphocytes % 7.8 %; Mean Corpuscular HGB Conc 33.3 g/dL (31.6-35.5); Mean Corpuscular Hemoglobin 30.4 pg (28.0-33.3); Mean Corpuscular Volume 91.1 fL (83.0-100.0); Mean Platelet Volume 9.5 fL (9.4-12.4); Monocytes # 0.8 K/mcL (0.0-1.3); Monocytes % 5.9 %; Neutrophils # 11.3 K/mcL (1.6-8.9); Platelet Count 366 K/mcL (140-400); Red Blood Count 2.93 M/mcL (4.19-5.50); Red Cell Distribution Width 13.5 % (11.5-14.5); Segmented Neutrophils % 84.1 %
[2016-10-14 08:32] LABS: BUN/Creatinine Ratio 14 (6-26); Blood Urea Nitrogen 18 mg/dL (8-26); Carbon Dioxide 13 mEq/L (19-29); Chloride 99 mEq/L (98-109); Osmolality,Calculated 299 (280-300); Potassium 4.6 mEq/L (3.5-4.5); Sodium 132 mEq/L (136-145); eGFR For African Americans > 60 (> 60); eGFR For Non-African Americans 58 (> 60)
[2016-10-14 08:37] LABS: Glucose 512 mg/dL (70-99)
[2016-10-14] MEDS: amLODIPine 5 MG TABLET PO SCH (08:55)
[2016-10-14] MEDS: Nicotine 21 MG PATCH.TD24 TD SCH (08:55)
[2016-10-14] MEDS: Lactobacillus 1 EACH CAP.SPRINK PO SCH (08:56)
[2016-10-14] MEDS: Insulin LISPRO 300 UNITS/3 ML VIAL SQ SCH ×2 (08:56→11:46)
[2016-10-14] MEDS ORDERED: Insulin DETEMIR 100 UNIT/ML X5UNITS SQ SCH (10:00)
--- NOTE | 2016-10-14 10:53 | Oncology Inp Progress Note ---
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 He is on a combination immunotherapy and escalated one cycle of treatment. Currently hospitalized for acute delirium, likely related to urinary tract infection and uncontrolled hyperglycemia. His recent imaging did not show any evidence of intracranial involvement with lung cancer. He is not manifesting any side effects of immunotherapy present such as diarrhea, adrenal insufficiency, pneumonitis, cerebritis but the symptoms to look out for during patient's hospital admission. If he starts to manifest any such symptoms, he will need aggressive support with immunosuppressive including steroids. Patient will need to follow up with his primary oncologist as outpatient for his chemotherapy treatment. Qualifiers: Qualified Code(s): C34.90 - Malignant neoplasm of unspecified part of unspecified bronchus or lung Oncology: Subj Interval history: Patient seen and examined. Patient was alert and oriented 3, denies any pain or complaints at this time. - Constitutional Vitals: Vital Signs Temp Pulse Resp BP Pulse Ox 10/14/16 09:05 96 10/14/16 07:46 17 96 10/14/16 07:40 98.5 F 89 14 118/57 95 10/14/16 03:23 98.5 F 89 17 139/67 96 10/13/16 23:54 97.6 F 84 16 127/63 92 10/13/16 23:07 16 98 10/13/16 20:59 16 95 10/13/16 20:51 91 10/13/16 20:18 98.2 F 102 16 121/64 95 10/13/16 15:30 99.2 F 85 18 116/63 92 10/13/16 15:20 18 95 10/13/16 11:19 97.4 F L 92 18 125/63 95 Intake and Output 10/13/16 10/14/16 10/14/16 23:59 07:59 15:59 Intake Total 1400 / 1400 100 / 100 360 / 360 Output Total 950 / 950 400 / 400 650 / 650 Balance 450 / 450 -300 / -300 -290 / -290 Intake: IV Fluids 1000 / 1000 100 / 100 0.9 % Sodium Chloride 1, 1000 / 1000 000 ML @ 60 mls/hr IVC . [id number] [facility] Rx#: [id number] Rocephin 1,000 MG In 100 / 100 Dextrose 5% (Minibag+) 100 ML 100 ML @ 200 mls/ hr IVPB Q12H [facility] Rx#: [id number] Oral 400 / 400 0 / 0 360 / 360 Output: Catheter 950 / 950 400 / 400 650 / 650 Other: Meal Breakfast Percent of Meal Consumed 25% Weight 54.119 kg Blood Glucose* 270 507 Patient Weight 10/14/16 23:59 Weight 54.119 kg General appearance: cooperative, thin - Head Head exam: Present: atraumatic, normal inspection, normocephalic - Eye Eye exam: Present: EOMI, PERRL Pupils: Present: PERRL - ENT ENT exam: Present: mucous membranes dry, normal exam - Neck Neck exam: Absent: lymphadenopathy, tenderness - Respiratory Respiratory exam: Present: CTAB. Absent: chest wall tenderness, rales, wheezes - Cardiovascular Cardiovascular exam: Present: RRR, +S1, +S2. Absent: clicks, rubs, systolic murmur - GI/Abdominal GI/Abdominal exam: Present: normal bowel sounds, soft. Absent: guarding, rebound, rigid, tenderness - Extremities Exam Extremities exam: Present: normal inspection. Absent: calf tenderness, pedal edema, tenderness - Neurological Exam Neurological exam: Present: alert, CN II-XII intact, oriented X3, no focal deficits. Absent: altered Oncology: Obj Data - Labs CBC & Chem 7: 10/14/16 08:09 10/14/16 08:09 Labs: Laboratory Results - last 24 hr 10/13/16 10/13/16 10/13/16 11:22 12:29 16:19 WBC RBC Hgb Hct MCV MCH MCHC RDW Plt Count MPV Immature Gran % Seg Neutrophils % Lymphocytes % Monocytes % Eosinophils % Basophils % Neutrophils # Lymphocytes # Monocytes # Eosinophils # Basophils # Sodium Potassium Chloride Carbon Dioxide BUN Creatinine Est GFR ( Amer) Est GFR (Non-Af Amer) BUN/Creatinine Ratio Glucose POC Glucose 267 H 318 H Est Mean Plasma Glucose Hemoglobin A1c Calculated Osmolality Lactic Acid 1.0 Calcium 10/13/16 10/14/16 10/14/16 20:16 07:40 07:41 WBC RBC Hgb Hct MCV MCH MCHC RDW Plt Count MPV Immature Gran % Seg Neutrophils % Lymphocytes % Monocytes % Eosinophils % Basophils % Neutrophils # Lymphocytes # Monocytes # Eosinophils # Basophils # Sodium Potassium Chloride Carbon Dioxide BUN Creatinine Est GFR ( Amer) Est GFR (Non-Af Amer) BUN/Creatinine Ratio Glucose POC Glucose 270 H 510 H* 507 H* Est Mean Plasma Glucose Hemoglobin A1c Calculated Osmolality Lactic Acid Calcium 10/14/16 10/14/16 10/14/16 08:09 08:09 08:09 WBC 13.5 H RBC 2.93 L Hgb 8.9 L Hct 26.7 L MCV 91.1 MCH 30.4 MCHC 33.3 RDW 13.5 Plt Count 366 MPV 9.5 Immature Gran % 1.7 Seg Neutrophils % 84.1 Lymphocytes % 7.8 Monocytes % 5.9 Eosinophils % 0.4 Basophils % 0.1 Neutrophils # 11.3 H Lymphocytes # 1.1 Monocytes # 0.8 Eosinophils # 0.1 Basophils # 0.0 Sodium 132 L Potassium 4.6 H Chloride 99 Carbon Dioxide 13 L BUN 18 Creatinine 1.25 Est GFR ( Amer) > 60 Est GFR (Non-Af Amer) 58 L BUN/Creatinine Ratio 14 Glucose 512 H* POC Glucose Est Mean Plasma Glucose 154 Hemoglobin A1c 7.0 H Calculated Osmolality 299 Lactic Acid Calcium 9.0 - Impressions Impressions Hip X-Ray 10/13/16 10:05 IMPRESSION: Possible acute nondisplaced left greater trochanteric fracture. CT or MRI is suggested for further evaluation. Osteopenia. D/ / 10/13/2016 11:19:43 Avery Gonzalez MD / kana Interpreting Provider: Avery Gonzalez MD Consult Discharge Plan - Plan Instructions: Urinary Tract Infection in Men (DC), Diabetes Mellitus Type 2 in Adults (DC) Referrals: Lucy Jain, ALLERGIST/PEDIATRIC PULMONOLOGIST [Primary Care Provider] - (web request sent on 10/13/16) Prescriptions: Lactose-Reduced Food [Boost High Protein] 237 ml PO DAILY #90 liquid Levofloxacin [Levaquin] 500 mg PO DAILY #5 tablet <Qamar Pierson. - Last Filed: 10/14/16 20:39> Date of Encounter: 10/14/16 - Constitutional Vitals: Vital Signs Temp Pulse Resp BP Pulse Ox 10/14/16 11:18 16 95 10/14/16 11:03 98.0 F 102 16 116/64 95 10/14/16 09:05 96 10/14/16 07:46 17 96 10/14/16 07:40 98.5 F 89 14 118/57 95 10/14/16 03:23 98.5 F 89 17 139/67 96 10/13/16 23:54 97.6 F 84 16 127/63 92 10/13/16 23:07 16 98 10/13/16 20:59 16 95 10/13/16 20:51 91 Intake and Output 10/14/16 10/14/16 10/15/16 08:59 16:59 00:59 Intake Total 100 / 100 480 / 480 Output Total 400 / 400 650 / 650 Balance -300 / -300 -170 / -170 Intake: IV Fluids 100 / 100 Rocephin 1,000 MG In 100 / 100 Dextrose 5% (Minibag+) 100 ML 100 ML @ 200 mls/ hr IVPB Q12H [facility] Rx#: [id number] Oral 0 / 0 480 / 480 Output: Catheter 400 / 400 650 / 650 Other: Meal Lunch Percent of Meal Consumed 0% Weight 54.119 kg Blood Glucose* 507 290 Patient Weight 10/15/16 00:59 Weight 54.119 kg Oncology: Obj Data - Labs CBC & Chem 7: 10/14/16 08:09 10/14/16 08:09 Labs: Laboratory Results - last 24 hr 10/13/16 10/14/16 10/14/16 20:16 07:40 07:41 WBC RBC Hgb Hct MCV MCH MCHC RDW Plt Count MPV Immature Gran % Seg Neutrophils % Lymphocytes % Monocytes % Eosinophils % Basophils % Neutrophils # Lymphocytes # Monocytes # Eosinophils # Basophils # Sodium Potassium Chloride Carbon Dioxide BUN Creatinine Est GFR ( Amer) Est GFR (Non-Af Amer) BUN/Creatinine Ratio Glucose POC Glucose 270 H 510 H* 507 H* Est Mean Plasma Glucose Hemoglobin A1c Calculated Osmolality Calcium 10/14/16 10/14/16 10/14/16 08:09 08:09 08:09 WBC 13.5 H RBC 2.93 L Hgb 8.9 L Hct 26.7 L MCV 91.1 MCH 30.4 MCHC 33.3 RDW 13.5 Plt Count 366 MPV 9.5 Immature Gran % 1.7 Seg Neutrophils % 84.1 Lymphocytes % 7.8 Monocytes % 5.9 Eosinophils % 0.4 Basophils % 0.1 Neutrophils # 11.3 H Lymphocytes # 1.1 Monocytes # 0.8 Eosinophils # 0.1 Basophils # 0.0 Sodium 132 L Potassium 4.6 H Chloride 99 Carbon Dioxide 13 L BUN 18 Creatinine 1.25 Est GFR ( Amer) > 60 Est GFR (Non-Af Amer) 58 L BUN/Creatinine Ratio 14 Glucose 512 H* POC Glucose Est Mean Plasma Glucose 154 Hemoglobin A1c 7.0 H Calculated Osmolality 299 Calcium 9.0 10/14/16 10/14/16 10/14/16 11:05 11:06 14:19 WBC RBC Hgb Hct MCV MCH MCHC RDW Plt Count MPV Immature Gran % Seg Neutrophils % Lymphocytes % Monocytes % Eosinophils % Basophils % Neutrophils # Lymphocytes # Monocytes # Eosinophils # Basophils # Sodium Potassium Chloride Carbon Dioxide BUN Creatinine Est GFR ( Amer) Est GFR (Non-Af Amer) BUN/Creatinine Ratio Glucose POC Glucose 429 H* 429 H* 290 H Est Mean Plasma Glucose Hemoglobin A1c Calculated Osmolality Calcium - Attending Attestation I examined this patient and my medical decision-making was reviewed with the MEAT CLERK/PA/Advanced Practice Nurse/Resident Physician. I agree with the documented findings, disposition and treatment plan as described except to the extent set forth below. Patient evidently making steady, incremental improvement to what his baseline. Plan for discharge later today. Here at he has an existing outpatient follow-up with oncology for continued management of his lung cancer and ongoing immunotherapy.
[2016-10-14 11:10] VITALS: BP 116/64
--- NOTE | 2016-10-14 14:51 | Discharge Summary ---
Date of Encounter: 10/14/16 Time of Encounter: 14:48 - Discharge Diagnosis (1) UTI (urinary tract infection) Priority: Primary Status: Acute Qualifiers: Urinary tract infection type: site unspecified Hematuria presence: without hematuria Qualified Code(s): N39.0 - Urinary tract infection, site not specified (2) Falls Priority: Primary Status: Acute Qualifiers: Encounter type: initial encounter Qualified Code(s): W19.XXXA - Unspecified fall, initial encounter (3) Sepsis Priority: Primary Status: Acute (4) Hypothyroidism Priority: Secondary Status: Chronic Qualifiers: Hypothyroidism type: unspecified Qualified Code(s): E03.9 - Hypothyroidism , unspecified (5) HTN (hypertension) Priority: Secondary Status: Chronic Qualifiers: Hypertension type: essential hypertension Qualified Code(s): I10 - Essential (primary) hypertension (6) Small cell lung cancer Priority: Secondary Status: Chronic Qualifiers: Laterality: unspecified laterality Qualified Code(s): C34.90 - Malignant neoplasm of unspecified part of unspecified bronchus or lung (7) Hip fracture, left Priority: Primary Status: Acute Qualifiers: Encounter type: initial encounter Fracture type: closed Qualified Code(s) : S72.002A - Fracture of unspecified part of neck of left femur, initial encounter for closed fracture - Discharge Medications Prescriptions: Lactose-Reduced Food [Boost High Protein] 237 ml PO DAILY #90 liquid Levofloxacin [Levaquin] 500 mg PO DAILY #5 tablet Home Medications: Albuterol Neb [AccuNeb] 0.63 mg IH Q6H PRN 09/27/15 [History] Albuterol Sulfate [Albuterol Inhaler] 2 puff IH Q4HR PRN 09/27/15 [History] Amlodipine Besylate 10 mg PO DAILY 09/27/15 [History] Budesonide/Formoterol 160/4.5 [Symbicort 160/4.5] 2 puff IH BIDR 09/27/15 [ History] Clopidogrel [Plavix] 75 mg PO DAILY 09/27/15 [History] Metoprolol [Lopressor] 50 mg PO BID 09/27/15 [History] Omeprazole [PriLOSEC] 20 mg PO DAILY 09/27/15 [History] Simvastatin [Zocor] 10 mg PO QPM 09/27/15 [History] Levothyroxine [Synthroid] 125 mcg PO 0630 01/31/16 [History] Insulin ASPART [Novolog] 0 unit SQ TIDWM 02/05/16 [History] Gabapentin [Neurontin] 300 mg PO HS 02/17/16 [History] Amitriptyline [Elavil] 25 mg PO HS #90 tablet 08/25/16 [Rx] Tamsulosin [Flomax] 0.4 mg PO DAILY #90 cap.er.24h 08/25/16 [Rx] Loperamide [Imodium] 2 mg PO AD PRN #90 capsule 09/10/16 [Rx] Oxycodone HCl [Oxaydo] 5 mg PO Q2H PRN #90 tablet.orl 09/10/16 [Rx] Docusate [Colace] 100 mg PO BID 09/18/16 [History] Glucagon,Human Recombinant [Glucagon Emergency Kit] 1 mg IJ ONCE PRN 09/18/16 [ History] Pramipexole Di-HCl [Pramipexole Dihydrochloride] 0.5 mg PO HS 09/18/16 [History] Lactose-Reduced Food [Ensure High Protein] 1 bottle PO TID #90 can 09/21/16 [Rx] Miscellaneous Medical Supply [Attachment Set] 1 each MC PRN PRN #1 miscell 09/21 [Rx] Morphine Sulfate SR (12 HR) [MS Contin] 15 mg PO Q12HR #60 10/05/16 [Rx] Ipilimumab [Yervoy] 10/12/16 [History] Nivolumab 10/12/16 [History] Nivolumab [Opdivo] 10/12/16 [History] Insulin DETEMIR [Levemir] 3 unit SQ HS 10/14/16 [History] Lactose-Reduced Food [Boost High Protein] 237 ml PO DAILY #90 liquid 10/14/16 [ Rx] Levofloxacin [Levaquin] 500 mg PO DAILY #5 tablet 10/14/16 [Rx] Allergies/Adverse Reactions: Allergies No Known Allergies Allergy (Verified 10/05/16 17:59) Date of admission: 10/13/16 05:25 Primary care physician: Lucy Jain CNP Consults: 10/13/16 00:20 PT [Consult to Physical Therapy] [CONS] Routine Comment: Evaluate, develop and implement POC Reason for Consult: Recurrent falls 10/13/16 04:04 Consult to Oncology [CONS] Routine Consulting Provider: [facility] [place] Reason for Consult: Lung cancer on immunotherapy Call Completed: No 10/13/16 18:19 Consult to Physician [CONS] Routine Consulting Provider: Orthopedic and Sports Medicine Reason for Consult: left hip fracture Time Notified: 18:21 Call Completed: Yes 10/13/16 21:44 Consult to Brine Mixer Operator [CONS] Routine Reason for SW Consult: discharge planning Discharging clinician: Alexander Mcadams Anticipated date of discharge: 10/14/16 - Patient Status Disposition: Home, Self-Care Condition: Fair Functional capacity at discharge: independent ambulation Overall status at discharge: patient is back to baseline - Discharge Instructions Instructions: Urinary Tract Infection in Men (DC), Diabetes Mellitus Type 2 in Adults (DC) Follow Up With: Lucy Jain CNP [Primary Care Provider] - (web request sent on 10/13/16) - Diet and Activity Activity: resume usual activities as tolerated Diet: advance to your usual diet Interval History: Mr. Swanson is a 66 year old male with past medical history of extensive stage small cell lung cancer and synchronous primary squamous cell lung cancer, DM ( insulin treated), hypertension, dementia, SIADH, GERD, COPD, Hypothyroidism, CAD s/p stents. He was taken to ER at [facility], after he fell off the bed earlier today fell face down. No loss of consciousness reported. He denies headache/blurry vision, weakness of the extremities, pain in the hips/ knees. He reports some pain in the right sided ribs but denies bruising. He denies shortness of breath, cough, expectoration, fever, chills, abdominal pain , dysuria, hematuria, bowel problems. He was evaluated in the ER and was noted to have UTI. Pt and his apparently requested for transfer to [facility], as his oncologist is based here and has care here. HE was aadmitted to hospitalist service and was started on IV ceftriaxone. He was also noted to have left greater trochanteric fracture from the fall, orthopedics was consulted and recommended no surgical intervention at this time. he recommended OP f/u with repeat imaging in few weeks. Urine cultures did not show any growth, patient does not have any urinary complaints. At this time patient is being discharged in stable condition, will complete course of antibiotics as he is immunocompromised. will dc him with home health referral. He will follow with his oncologist she follow for continuation of his immunotherapy. Hospital course: Mr. Swanson is a 66 year old male Time spent discussing smoking cessation with patient: more than 10 minutes - Time Spent with Patient Total time spent providing and/or coordinating discharge services: Greater than 30 minutes - Constitutional Vitals: Temp Pulse Resp BP Pulse Ox 98.0 F 102 16 116/64 95 10/14/16 11:03 10/14/16 11:03 10/14/16 11:18 10/14/16 11:03 10/14/16 11:18 General appearance: Present: A&O X 3, no acute distress Exam: General: Not in acute distress at the time of my evaluation. Confused at times. Her denies new changes HEENT: Oral mucosa is dry. No conjunctival palor or scleral icterus Neck: No obvious neck swellings Lungs: b/l clear. Cardiac: Regular rate and rhythm. No significant murmurs Abdomen: Soft, non tender. Bowel sounds present Genitourinary: No caraballo catheter Neurological: Alert and Confused at times. No gross localizing deficits Psych: Not aggressive or agitated Extremities: no significant leg edema Skin: No generalized rash
--- NOTE | 2016-10-14 16:42 | Physician Discharge Referral ---
Home Health/Hosp Referral Info Transfer to: Home Health Attending Provider: preeti ly - Diagnosis (1) UTI (urinary tract infection) Status: Acute (2) Falls Status: Acute (3) Sepsis Status: Acute (4) Hypothyroidism Status: Chronic (5) HTN (hypertension) Status: Chronic (6) Small cell lung cancer Status: Chronic (7) Hip fracture, left Status: Acute - Respiratory Orders Smoking Cessation: Smoking cessation has been advised. For more information, call the [facility] Tobacco Quit Line at 8-487-VENW-NOW. - Diet/Nutrition Diet/Nutrition Orders: Regular - Activity Activity Orders: Ambulate, Chair, Walker - Services Needed Following services are medically necessary services: Nursing, Home Health Aide, Physical Therapy, Occupational Therapy - Transfer Medications Prescriptions: Lactose-Reduced Food [Boost High Protein] 237 ml PO DAILY #90 liquid Levofloxacin [Levaquin] 500 mg PO DAILY #5 tablet Home Medications: Albuterol Neb [AccuNeb] 0.63 mg IH Q6H PRN 09/27/15 [History] Albuterol Sulfate [Albuterol Inhaler] 2 puff IH Q4HR PRN 09/27/15 [History] Amlodipine Besylate 10 mg PO DAILY 09/27/15 [History] Budesonide/Formoterol 160/4.5 [Symbicort 160/4.5] 2 puff IH BIDR 09/27/15 [ History] Clopidogrel [Plavix] 75 mg PO DAILY 09/27/15 [History] Metoprolol [Lopressor] 50 mg PO BID 09/27/15 [History] Omeprazole [PriLOSEC] 20 mg PO DAILY 09/27/15 [History] Simvastatin [Zocor] 10 mg PO QPM 09/27/15 [History] Levothyroxine [Synthroid] 125 mcg PO 0630 01/31/16 [History] Insulin ASPART [Novolog] 0 unit SQ TIDWM 02/05/16 [History] Gabapentin [Neurontin] 300 mg PO HS 02/17/16 [History] Amitriptyline [Elavil] 25 mg PO HS #90 tablet 08/25/16 [Rx] Tamsulosin [Flomax] 0.4 mg PO DAILY #90 cap.er.24h 08/25/16 [Rx] Loperamide [Imodium] 2 mg PO AD PRN #90 capsule 09/10/16 [Rx] Oxycodone HCl [Oxaydo] 5 mg PO Q2H PRN #90 tablet.orl 09/10/16 [Rx] Docusate [Colace] 100 mg PO BID 09/18/16 [History] Glucagon,Human Recombinant [Glucagon Emergency Kit] 1 mg IJ ONCE PRN 09/18/16 [ History] Pramipexole Di-HCl [Pramipexole Dihydrochloride] 0.5 mg PO HS 09/18/16 [History] Lactose-Reduced Food [Ensure High Protein] 1 bottle PO TID #90 can 09/21/16 [Rx] Miscellaneous Medical Supply [Attachment Set] 1 each MC PRN PRN #1 miscell 09/21 [Rx] Morphine Sulfate SR (12 HR) [MS Contin] 15 mg PO Q12HR #60 10/05/16 [Rx] Ipilimumab [Yervoy] 10/12/16 [History] Nivolumab 10/12/16 [History] Nivolumab [Opdivo] 10/12/16 [History] Insulin DETEMIR [Levemir] 3 unit SQ HS 10/14/16 [History] Lactose-Reduced Food [Boost High Protein] 237 ml PO DAILY #90 liquid 10/14/16 [ Rx] Levofloxacin [Levaquin] 500 mg PO DAILY #5 tablet 10/14/16 [Rx] Allergies/Adverse Reactions: Allergies No Known Allergies Allergy (Verified 10/05/16 17:59) Certification: Further, I certify that my clinical findings support that this patient is homebound (i.e. absences from home require considerable and taxing effort and are for medical reasons or restoration services or infrequently or short duration when for other reasons) because: Homebound Reason: Patient requires assistance of a person or device to safely leave home Attestation: My signature below is to certify that this patient is under my care and that I, or nurse practitioner, or a physician's rn first assistant working with me, has a face-to -face encounter with this patient.
== END 2016-10-14 16:00 | disposition home or self-care (01) | DRG 871 ==
LOC: 2ANU
PROVIDERS: ADMIT Hospitalist; ATTEND Internal Medicine